=== PATIENT | female | born 1990 | race Caucasian/White ===

== ENCOUNTER 2019-09-24 05:44 | Inpatient (IN) | payer OTHER ==
[~2019-09-24] VITALS: Ht 157.5 cm; Wt 69.0 kg
[2019-09-24] MEDS ORDERED: SODIUM CHLORIDE 0.9% 1,000 ML IV ONE ×2 (06:21→07:35)
[2019-09-24 06:43] LABS: BG BASE EXCESS -21.6 mmol/L (-2.0-2.0); BG CARBOXYHEMOGLOBIN 0.6 % (0.5-1.5); BG DEOXYHEMOGLOBIN 2.6 % (0.0-5.0); BG FRACTION INSPIRED OXYGEN 21; BG HCO3 ACT 4.1 mmol/L (22.0-26.0); BG METHEMOGLOBIN 0.4 % (0.0-1.5); BG OXYGEN SATURATION 97.4 % (92.0-98.5); BG OXYHEMOGLOBIN 96.4 % (94.0-97.0); BG PCO2 11.6 mmHg (35.0-45.0); BG PH 7.167 (7.350-7.450); BG PO2 112.1 mmHg (75.0-100.0); BG SAMPLE SITE RIGHT RADIAL; BG TOTAL HEMOGLOBIN 15.9 g/dL (12.0-18.0); BG VENT MODE ROOM AIR
[2019-09-24 06:45] LABS: CHLORIDE 90 mEq/L (98-107)
[2019-09-24 06:51] LABS: HEMATOCRIT. 48.1 % (36.0-48.0); HEMOGLOBIN. 15.6 g/dL (12.0-16.0); MEAN CORPUSCULAR HEMOGLOBIN 35.1 pg (28.0-32.0); MEAN CORPUSCULAR VOLUME 108.3 fL (81.0-99.0); MEAN PLATELET VOLUME 10.5 fl (7.4-10.4); PLATELET 321 x1000/uL (130-400); RED BLOOD CELL COUNT 4.44 mill/uL (4.2-5.4)
[2019-09-24] MEDS ORDERED: INSULIN REGULAR (DRIP) 100 UNITS in SODIUM CHLORIDE 0.9% 99 ML IV SCH (07:15)
[2019-09-24 07:25] LABS: BETA HYDROXYBUTYRATE 10.8 mMol/L (0.0-0.3)
[2019-09-24] MEDS ORDERED: ONDANSETRON HCL 4MG/2ML INJ IV ONE (07:45)
[2019-09-24 09:00] LABS: PLATELET ESTIMATE NORMAL
[2019-09-24] MEDS ORDERED: INSULIN REGULAR (DRIP) 100 UNITS in SODIUM CHLORIDE 0.9% 99 ML IV ONE (09:45)
[2019-09-24] MEDS ORDERED: DIPHENHYDRAMINE 50MG/ML VIAL IV PRN (09:45)
[2019-09-24] MEDS ORDERED: ONDANSETRON HCL 4MG/2ML INJ IV PRN (09:45)
[2019-09-24] MEDS ORDERED: ACETAMINOPHEN 325MG TABLET PO PRN ×2 (09:45)
[2019-09-24] MEDS ORDERED: SODIUM CHLORIDE 0.9% 1,000 ML IV SCH (10:00)
[2019-09-24] MEDS ORDERED: DEXTROSE 50% WATER 50ML SYRINGE IV PRN ×2 (11:30)
[2019-09-24] MEDS: BLOOD SUGAR DIAGNOSTIC STRIP TEST SCH ×7 (11:49→18:55)
[2019-09-24] MEDS ORDERED: INSULIN REGULAR (DRIP) 100 UNITS in SODIUM CHLORIDE 0.9% 100 ML IV SCH (12:00)
[2019-09-24 12:33] LABS: CLARITY URINE CLEAR (CLEAR); COLOR URINE YELLOW (YELLOW); KETONES URINE 4+ (NEGATIVE); LEUKOCYTE ESTERASE URINE NEGATIVE (NEGATIVE); NITRITE URINE NEGATIVE (NEGATIVE); OCCULT BLOOD URINE 3+ (NEGATIVE); PROTEIN URINE 1+ (NEGATIVE); SPECIFIC GRAVITY URINE 1.033 (1.005-1.030); UROBILINOGEN URINE 0.2 E.U./dL (0.2-1.0)
[2019-09-24 12:37] LABS: *AMPHETAMINES SCREEN URINE NEGATIVE (NEGATIVE); *BARBITURATES SCREEN URINE NEGATIVE (NEGATIVE); *BENZODIAZEPINES SCREEN URINE NEGATIVE (NEGATIVE); *COCAINE SCREEN URINE NEGATIVE (NEGATIVE); METHADONE URINE SCREEN NEGATIVE (NEGATIVE); OPIATES URINE SCREEN NEGATIVE (NEGATIVE)
[2019-09-24 12:38] LABS: CANNABINOID URINE SCREEN PRESUMTIVE POSITIVE (NEGATIVE); PHENCYCLIDINE URINE SCREEN NEGATIVE (NEGATIVE)
[2019-09-24] MEDS ORDERED: LORAZEPAM 2MG/ML CPJ IV PRN (15:30)
[2019-09-24] MEDS ORDERED: DEXT 5%/0.45% NACL 1000ML 1,000 ML IV SCH (15:30)
[2019-09-24 17:58] LABS: CHLORIDE 114 mEq/L (98-107)
[2019-09-25 04:26] LABS: HEMATOCRIT. 39.3 % (36.0-48.0); HEMOGLOBIN. 13.6 g/dL (12.0-16.0); MEAN CORPUSCULAR HEMOGLOBIN 35.1 pg (28.0-32.0); MEAN CORPUSCULAR VOLUME 101.3 fL (81.0-99.0); MEAN PLATELET VOLUME 9.4 fl (7.4-10.4); PLATELET 221 x1000/uL (130-400); RED BLOOD CELL COUNT 3.88 mill/uL (4.2-5.4); RED CELL DISTRIBUTION WIDTH 13.4 % (11.6-14.6)
[2019-09-25 04:33] LABS: CHLORIDE 115 mEq/L (98-107)
[2019-09-25 07:48] LABS: PLATELET ESTIMATE NORMAL
[2019-09-25] MEDS ORDERED: POTASSIUM PHOS,M-BASIC-D-BASIC 30 MMOL in DEXT 5% WATER 500 ML IV NR (12:00)
[2019-09-25 18:23] LABS: CHLORIDE 106 mEq/L (98-107)
[2019-09-25] MEDS ORDERED: LORAZEPAM 1MG TABLET PO PRN (19:30)
[2019-09-25] MEDS ORDERED: ZOLPIDEM TARTRATE 5MG TABLET PO PRN (19:30)
[2019-09-25] MEDS ORDERED: DEXTROSE 50% WATER 50ML SYRINGE IV PRN (19:30)
[2019-09-25] MEDS ORDERED: POTASSIUM CHLORIDE 20MEQ TABLET SR PO NR (19:49)
[2019-09-25] MEDS: SODIUM CHLORIDE 0.9% 1,000 ML IV SCH (20:06)
[2019-09-25] MEDS ORDERED: INSULIN GLARGINE UD 100 UNITS/ML SYR SUBCUT NR (20:30)
[2019-09-25] MEDS: INSULIN LISPRO 100 UNITS/ML SUBCUT SCH (20:40)
[2019-09-25] MEDS ORDERED: FAMOTIDINE 10MG TABLET PO SCH (21:00)
[2019-09-25] MEDS: BLOOD SUGAR DIAGNOSTIC STRIP TEST SCH (22:23)
[2019-09-25] MEDS: FAMOTIDINE 20MG TABLET PO SCH (22:30)
[2019-09-26 04:32] LABS: BASOPHILS % 0.5 % (0.0-2.0); EOSINOPHILS % 1.1 % (0.0-5.0); HEMATOCRIT. 35.1 % (36.0-48.0); HEMOGLOBIN. 12.3 g/dL (12.0-16.0); LYMPHOCYTES % 15.4 % (20.0-50.0); MEAN CORPUSCULAR HEMOGLOBIN 35.1 pg (28.0-32.0); MEAN CORPUSCULAR VOLUME 100.4 fL (81.0-99.0); MEAN PLATELET VOLUME 9.4 fl (7.4-10.4); MONOCYTES % 7.2 % (2.0-8.0); NEUTROPHILS % 75.8 % (40.0-76.0); PLATELET 187 x1000/uL (130-400); RED BLOOD CELL COUNT 3.49 mill/uL (4.2-5.4); RED CELL DISTRIBUTION WIDTH 13.1 % (11.6-14.6)
[2019-09-26 04:38] LABS: CHLORIDE 108 mEq/L (98-107)
[2019-09-26 04:44] LABS: PHOSPHORUS 1.9 mg/dL (2.5-4.9)
[2019-09-26] MEDS: BLOOD SUGAR DIAGNOSTIC STRIP TEST SCH ×4 (06:30→20:42)
[2019-09-26 08:00] VITALS: BP 148/87
[2019-09-26] MEDS ORDERED: POTASSIUM CHLORIDE 20MEQ TABLET SR PO SCH (09:00)
[2019-09-26] MEDS ORDERED: INSULIN GLARGINE UD 100 UNITS/ML SYR SUBCUT SCH (10:00)
[2019-09-26] MEDS: INSULIN LISPRO 100 UNITS/ML SUBCUT SCH ×4 (10:42→21:16)
[2019-09-26] MEDS: FAMOTIDINE 20MG TABLET PO SCH ×2 (10:47→21:17)
[2019-09-26 11:27] VITALS: BP 148/87
[2019-09-26 12:00] VITALS: BP 139/99
[2019-09-26] MEDS: SODIUM CHLORIDE 0.9% 1,000 ML IV SCH (12:57)
[2019-09-26] MEDS ORDERED: MAGNESIUM 1 G PREMIX 100 ML IV SCH (13:00)
[2019-09-26] MEDS ORDERED: POTASSIUM PHOS,M-BASIC-D-BASIC 30 MMOL in DEXT 5% WATER 500 ML IV SCH (13:00)
[2019-09-26 16:00] VITALS: BP 141/95
[2019-09-26] MEDS ORDERED: CITRIC ACID/SODIUM CITRATE SOLN 15ML UDC PO SCH (17:00)
[2019-09-26 19:45] VITALS: BP 149/98
[2019-09-26 19:54] VITALS: BP 149/98
== END 2019-09-26 21:50 | disposition short-term general hospital (02) | DRG 637 ==
LOC: ER 05:44 → MICUSO 08:57 → EDBEDREQSVC 10:26 → 5WST 09-26 07:34
PROVIDERS: ADMIT Internal Medicine; ATTEND Internal Medicine
DX: E11.10 Type 2 diabetes mellitus with ketoacidosis without coma (principal); G93.41 Metabolic encephalopathy; N17.9 Acute kidney failure, unspecified; J98.11 Atelectasis; R65.10 Systemic inflammatory response syndrome (SIRS) of non-infectious origin without acute organ dysfunction; E83.39 Other disorders of phosphorus metabolism; I10 Essential (primary) hypertension; E86.0 Dehydration; F14.90 Cocaine use, unspecified, uncomplicated; F12.90 Cannabis use, unspecified, uncomplicated; Z79.899 Other long term (current) drug therapy
CPT/HCPCS: 36415; 36600; 71045; 80048; 80053; 80305; 81003; 82010; 82375; 82805; 82962; 83735; 84100; 84484; 85025; 93005; 96374; 99291; J1815; J2060; J2405; J3475; J3490; J7030; J7050; J7060

== ENCOUNTER 2021-01-22 15:19 | Inpatient (IN) | payer SELFPAY ==
[~2021-01-22] VITALS: Ht 157.5 cm; Wt 50.8 kg
[2021-01-22] MEDS ORDERED: SODIUM CHLORIDE 0.9% 1,000 ML IV ONE ×2 (15:45→16:45)
[2021-01-22 15:56] LABS: HEMATOCRIT. 42.8 % (36.0-48.0); HEMOGLOBIN. 13.3 g/dL (12.0-16.0); MEAN CORPUSCULAR HEMOGLOBIN 33.2 pg (28.0-32.0); MEAN CORPUSCULAR VOLUME 106.9 fL (81.0-99.0); MEAN PLATELET VOLUME 9.9 fl (7.4-10.4); PLATELET 330 x1000/uL (130-400); RED BLOOD CELL COUNT 4.01 mill/uL (4.2-5.4); RED CELL DISTRIBUTION WIDTH 13.9 % (11.6-14.6)
[2021-01-22 16:04] LABS: CHLORIDE 97 mEq/L (98-107)
[2021-01-22 16:07] LABS: HCG SCREEN NEGATIVE
[2021-01-22 16:27] LABS: PHOSPHORUS 8.2 mg/dL (2.5-4.9)
[2021-01-22 16:42] LABS: BG BASE EXCESS -25.7 mmol/L (-2.0-2.0); BG CARBOXYHEMOGLOBIN 0.3 % (0.5-1.5); BG DEOXYHEMOGLOBIN 1.6 % (0.0-5.0); BG FRACTION INSPIRED OXYGEN 32; BG HCO3 ACT 2.8 mmol/L (22.0-26.0); BG METHEMOGLOBIN 0.4 % (0.0-1.5); BG OXYGEN SATURATION 98.4 % (92.0-98.5); BG OXYHEMOGLOBIN 97.7 % (94.0-97.0); BG PCO2 10.6 mmHg (35.0-45.0); BG PH 7.041 (7.350-7.450); BG PO2 151.5 mmHg (75.0-100.0); BG SAMPLE SITE RIGHT BRACHIAL; BG TOTAL HEMOGLOBIN 12.7 g/dL (12.0-18.0); BG VENT MODE NASAL CANNULA
[2021-01-22] MEDS ORDERED: KCL 10MEQ/50ML PREMIX 50 ML IV ONE (16:45)
[2021-01-22] MEDS ORDERED: INSULIN REGULAR (DRIP) 100 UNITS in SODIUM CHLORIDE 0.9% 100 ML IV ONE (16:45)
[2021-01-22 16:47] LABS: BETA HYDROXYBUTYRATE 11.6 mMol/L (0.0-0.3)
[2021-01-22] MEDS ORDERED: MORPHINE SULFATE 4 MG/ML CPJ (NOT FOR IM USE) IV ONE (17:00)
[2021-01-22 17:34] LABS: PLATELET ESTIMATE NORMAL
[2021-01-22 18:18] LABS: PHOSPHORUS 4.2 mg/dL (2.5-4.9)
[2021-01-22 21:56] LABS: BG BASE EXCESS -22.4 mmol/L (-2.0-2.0); BG CARBOXYHEMOGLOBIN 0.4 % (0.5-1.5); BG DEOXYHEMOGLOBIN 1.5 % (0.0-5.0); BG FRACTION INSPIRED OXYGEN 28; BG HCO3 ACT 3.5 mmol/L (22.0-26.0); BG METHEMOGLOBIN 0.2 % (0.0-1.5); BG OXYGEN SATURATION 98.5 % (92.0-98.5); BG OXYHEMOGLOBIN 97.9 % (94.0-97.0); BG PCO2 9.8 mmHg (35.0-45.0); BG PH 7.168 (7.350-7.450); BG PO2 136.3 mmHg (75.0-100.0); BG SAMPLE SITE LEFT RADIAL; BG TOTAL HEMOGLOBIN 13.1 g/dL (12.0-18.0); BG VENT MODE NASAL CANNULA
[2021-01-22 22:09] LABS: CHLORIDE 106 mEq/L (98-107)
[2021-01-22 23:11] LABS: PHOSPHORUS 1.8 mg/dL (2.5-4.9)
[2021-01-22] MEDS ORDERED: ACETAMINOPHEN 650MG/20.3ML UDC GT PRN (23:30)
[2021-01-22] MEDS ORDERED: INSULIN REGULAR (DRIP) 100 UNITS in SODIUM CHLORIDE 0.9% 100 ML IV SCH (23:30)
[2021-01-22] MEDS ORDERED: ONDANSETRON HCL 4MG/2ML INJ IV PRN (23:30)
[2021-01-22] MEDS ORDERED: HYDROCODONE/ACETAMINOPHEN 5/325MG TABLET PO PRN (23:30)
[2021-01-22] MEDS ORDERED: DEXTROSE 50% WATER 50ML SYRINGE IV PRN ×2 (23:30)
[2021-01-22] MEDS ORDERED: SODIUM CHLORIDE 0.45% 1,000 ML IV SCH ×2 (23:30)
[2021-01-22] MEDS ORDERED: HYDROCODONE/APAP 7.5/325MG 1 TAB TABLET PO PRN (23:30)
[2021-01-22] MEDS ORDERED: POTASSIUM PHOS,M-BASIC-D-BASIC 10 MMOL in DEXT 5% WATER 246.6667 ML IV ONE (23:30)
[2021-01-22] MEDS ORDERED: CEFTRIAXONE 1 G PREMIX 50 ML IV SCH (23:45)
[2021-01-22] MEDS ORDERED: SODIUM BICARBONATE 8.4% 1 MEQ/ML 50ML SYR IV NR (23:45)
[2021-01-22] MEDS ORDERED: DEXT 5%/0.9% NACL 1,000 ML IV SCH (23:45)
[2021-01-22] MEDS ORDERED: SODIUM BICARBONATE 150 MEQ in SODIUM CHLORIDE 0.45% 1,000 ML IV SCH (23:45)
[2021-01-22] MEDS: MORPHINE SULFATE 2 MG/ML CPJ (NOT FOR IM USE) IV PRN (23:51)
[2021-01-23] MEDS ORDERED: MAGNESIUM 2 G PREMIX 50 ML IV ONE
[2021-01-23] MEDS ORDERED: SODIUM BICARBONATE 150 MEQ in DEXTROSE 5% WATER 1,000 ML IV SCH
[2021-01-23] MEDS ORDERED: SODIUM PHOS,M-BASIC-D-BASIC 10 MM in DEXTROSE 5% WATER 250 ML IV ONE (01:00)
[2021-01-23 04:50] LABS: BASOPHILS % 0.3 % (0.0-2.0); HEMATOCRIT. 35.4 % (36.0-48.0); HEMOGLOBIN. 12.2 g/dL (12.0-16.0); MEAN CORPUSCULAR HEMOGLOBIN 34.1 pg (28.0-32.0); MEAN CORPUSCULAR VOLUME 99.1 fL (81.0-99.0); MEAN PLATELET VOLUME 9.3 fl (7.4-10.4); MONOCYTES % 6.6 % (2.0-8.0); NEUTROPHILS % 83.1 % (40.0-76.0); PLATELET 231 x1000/uL (130-400); RED BLOOD CELL COUNT 3.58 mill/uL (4.2-5.4); RED CELL DISTRIBUTION WIDTH 13.4 % (11.6-14.6)
[2021-01-23 04:56] LABS: CHLORIDE 104 mEq/L (98-107)
[2021-01-23 05:04] LABS: LDL CHOLESTEROL 123 mg/dL (5-100)
[2021-01-23 05:06] LABS: CREATINE KINASE 83 IU/L (26-192); HDL CHOLESTEROL 37 mg/dL (40-59)
[2021-01-23 05:11] LABS: CREATINE KINASE MB FRACTION 2.1 ng/mL (0.5-3.6)
[2021-01-23 06:58] LABS: CLARITY URINE CLEAR (CLEAR); COLOR URINE YELLOW (YELLOW); KETONES URINE 4+ (NEGATIVE); LEUKOCYTE ESTERASE URINE NEGATIVE (NEGATIVE); NITRITE URINE NEGATIVE (NEGATIVE); OCCULT BLOOD URINE 3+ (NEGATIVE); PROTEIN URINE 2+ (NEGATIVE); SPECIFIC GRAVITY URINE 1.016 (1.005-1.030)
[2021-01-23] MEDS: BLOOD SUGAR DIAGNOSTIC STRIP TEST SCH ×7 (09:30→21:18)
[2021-01-23] MEDS: ENOXAPARIN 40MG/0.4ML SYR SUBCUT SCH (09:35)
[2021-01-23] MEDS: MORPHINE SULFATE 2 MG/ML CPJ (NOT FOR IM USE) IV PRN (09:50)
[2021-01-23] MEDS ORDERED: SODIUM BICARBONATE 8.4% 1 MEQ/ML 50ML SYR IV ONE (11:00)
[2021-01-23] MEDS ORDERED: POTASSIUM CHLORIDE 20MEQ TABLET SR PO ONE (11:00)
[2021-01-23] MEDS: DEXT 5%/0.9% NACL 1,000 ML IV SCH (13:00)
[2021-01-23] MEDS ORDERED: NALOXONE HCL 0.4MG/ML VIAL IV PRN (15:45)
[2021-01-23 16:06] LABS: CHLORIDE 102 mEq/L (98-107)
[2021-01-23 16:14] LABS: CREATINE KINASE 125 IU/L (26-192)
[2021-01-23 16:15] LABS: CREATINE KINASE MB FRACTION < 1.0 ng/mL (0.5-3.6)
[2021-01-23] MEDS ORDERED: DEXTROSE 50% WATER 50ML SYRINGE IV PRN (17:15)
[2021-01-23] MEDS ORDERED: INSULIN GLARGINE UD 100 UNITS/ML SYR SUBCUT NR (17:30)
[2021-01-23] MEDS ORDERED: CEFTRIAXONE 1,000 MG in DEXTROSE 5% WATER 50 ML IV SCH (20:30)
[2021-01-23 22:00] VITALS: BP 108/76
[2021-01-23] MEDS: INSULIN LISPRO 100 UNITS/ML SUBCUT SCH (22:28)
[2021-01-24] VITALS: BP 108/76
[2021-01-24] MEDS ORDERED: LANTUSUD SUBCUT ×2 (01:03→15:21)
[2021-01-24 04:00] VITALS: BP 105/76
[2021-01-24] MEDS: DEXT 5%/0.9% NACL 1,000 ML IV SCH (04:02)
[2021-01-24] MEDS: BLOOD SUGAR DIAGNOSTIC STRIP TEST SCH ×3 (06:40→16:38)
[2021-01-24] MEDS: INSULIN LISPRO 100 UNITS/ML SUBCUT SCH ×3 (07:10→16:39)
[2021-01-24 08:00] VITALS: BP 104/64
[2021-01-24] MEDS ORDERED: INSULIN GLARGINE UD 100 UNITS/ML SYR SUBCUT SCH (10:00)
[2021-01-24] MEDS: ENOXAPARIN 40MG/0.4ML SYR SUBCUT SCH (10:20)
[2021-01-24 12:00] VITALS: BP 104/68
[2021-01-24 12:40] LABS: BASOPHILS % 0.6 % (0.0-2.0); EOSINOPHILS % 1.4 % (0.0-5.0); HEMOGLOBIN. 11.3 g/dL (12.0-16.0); LYMPHOCYTES % 32.9 % (20.0-50.0); MEAN CORPUSCULAR HEMOGLOBIN 33.5 pg (28.0-32.0); MEAN CORPUSCULAR VOLUME 97.9 fL (81.0-99.0); MEAN PLATELET VOLUME 9.5 fl (7.4-10.4); MONOCYTES % 8.4 % (2.0-8.0); NEUTROPHILS % 56.7 % (40.0-76.0); PLATELET 196 x1000/uL (130-400); RED BLOOD CELL COUNT 3.37 mill/uL (4.2-5.4)
[2021-01-24 12:51] LABS: CHLORIDE 99 mEq/L (98-107)
[2021-01-24] MEDS ORDERED: POTASSIUM CHLORIDE 20MEQ TABLET SR PO NR ×2 (14:30→15:30)
[2021-01-24] MEDS ORDERED: INSLIS SUBCUT (15:22)
[2021-01-24 16:00] VITALS: BP 106/64
[2021-01-24] MEDS ORDERED: INSULIN GLARGINE UD 100 UNITS/ML SYR SUBCUT NR (16:30)
[2021-01-24 17:17] LABS: *AMPHETAMINES SCREEN URINE NEGATIVE (NEGATIVE)
[2021-01-24 17:18] LABS: *BARBITURATES SCREEN URINE NEGATIVE (NEGATIVE); *BENZODIAZEPINES SCREEN URINE NEGATIVE (NEGATIVE); *COCAINE SCREEN URINE NEGATIVE (NEGATIVE); METHADONE URINE SCREEN NEGATIVE (NEGATIVE); OPIATES URINE SCREEN NEGATIVE (NEGATIVE); PHENCYCLIDINE URINE SCREEN NEGATIVE (NEGATIVE)
[2021-01-24 17:19] LABS: CANNABINOID URINE SCREEN NEGATIVE (NEGATIVE)
[2021-01-24 18:24] VITALS: BP 104/68
[2021-01-25] MEDS ORDERED: INSULIN GLARGINE UD 100 UNITS/ML SYR SUBCUT SCH (10:00)
== END 2021-01-24 21:06 | disposition home or self-care (01) | DRG 420 ==
LOC: ER 15:19 → MICUSO 20:23 → 7EST 01-23 19:03
PROVIDERS: ADMIT Family Medicine; ATTEND Family Medicine
DX: E10.10 Type 1 diabetes mellitus with ketoacidosis without coma (principal); F12.10 Cannabis abuse, uncomplicated; F17.200 Nicotine dependence, unspecified, uncomplicated; F14.10 Cocaine abuse, uncomplicated; Z20.822 Contact with and (suspected) exposure to COVID-19; F15.10 Other stimulant abuse, uncomplicated; R79.89 Other specified abnormal findings of blood chemistry; R00.0 Tachycardia, unspecified; Z79.4 Long term (current) use of insulin
CPT/HCPCS: 36415; 36600; 71045; 80048; 80053; 80061; 80305; 81003; 82010; 82375; 82550; 82553; 82805; 82962; 83036; 83605; 83735; 83880; 83930; 84100; 84132; 84145; 84484; 84703; 85025; 85379; 87426; 87804; 93005; 93970; 99291; J0696; J1650; J1815; J2270; J2405; J3475; J3480; J3490; J7030; J7042; J7050; J7060; J7070

== ENCOUNTER 2021-02-09 13:29 | Inpatient (IN) | payer SELFPAY ==
[~2021-02-09] VITALS: Ht 157.5 cm; Wt 51.3 kg
[~2021-02-09 13:29] MED LIST: INSLIS SUBCUT; LANTUSUD SUBCUT
[2021-02-09] MEDS ORDERED: SODIUM CHLORIDE 0.9% 1,000 ML IV ONE (14:00)
[2021-02-09 14:44] LABS: CLARITY URINE CLEAR (CLEAR); COLOR URINE YELLOW (YELLOW); KETONES URINE 3+ (NEGATIVE); LEUKOCYTE ESTERASE URINE NEGATIVE (NEGATIVE); NITRITE URINE NEGATIVE (NEGATIVE); OCCULT BLOOD URINE 1+ (NEGATIVE); PH URINE 5.5 (4.5-8.0); PROTEIN URINE 3+ (NEGATIVE); SPECIFIC GRAVITY URINE 1.035 (1.005-1.030)
[2021-02-09 14:48] LABS: BASOPHILS % 0.4 % (0.0-2.0); HEMATOCRIT. 45.9 % (36.0-48.0); HEMOGLOBIN. 14.3 g/dL (12.0-16.0); LYMPHOCYTES % 14.2 % (20.0-50.0); MEAN CORPUSCULAR HEMOGLOBIN 33.2 pg (28.0-32.0); MEAN CORPUSCULAR VOLUME 106.5 fL (81.0-99.0); MEAN PLATELET VOLUME 9.2 fl (7.4-10.4); MONOCYTES % 5.1 % (2.0-8.0); NEUTROPHILS % 80.3 % (40.0-76.0); PLATELET 324 x1000/uL (130-400); RED BLOOD CELL COUNT 4.31 mill/uL (4.2-5.4)
[2021-02-09 14:49] LABS: CHLORIDE 99 mEq/L (98-107)
[2021-02-09 14:57] LABS: BETA HYDROXYBUTYRATE 9.6 mMol/L (0.0-0.3)
[2021-02-09] MEDS ORDERED: SODIUM CHLORIDE 0.9% 1,000 ML IV STA (15:12)
[2021-02-09] MEDS ORDERED: INSULIN REGULAR (DRIP) 100 UNITS in SODIUM CHLORIDE 0.9% 100 ML IV SCH ×2 (15:15→18:00)
[2021-02-09] MEDS ORDERED: MAGNESIUM/ALUMINUM HYDROXIDE/SIMETHICONE 30ML UDC PO PRN (17:15)
[2021-02-09] MEDS ORDERED: IPRATROPIUM/ALBUTEROL 0.5-3(2.5)MG/3ML NEB HHN PRN (17:15)
[2021-02-09] MEDS ORDERED: DOCUSATE SODIUM 100MG CAPSULE PO PRN (17:15)
[2021-02-09] MEDS ORDERED: MORPHINE SULFATE 2 MG/ML CPJ (NOT FOR IM USE) IV PRN (17:15)
[2021-02-09] MEDS ORDERED: DEXTROSE 50% WATER 50ML SYRINGE IV PRN ×3 (17:15→22:30)
[2021-02-09] MEDS ORDERED: HYDRALAZINE 20MG/ML VIAL IV PRN (17:15)
[2021-02-09] MEDS ORDERED: HYDROCODONE/ACETAMINOPHEN 5/325MG TABLET PO PRN (17:15)
[2021-02-09] MEDS ORDERED: ACETAMINOPHEN 325MG TABLET PO PRN (17:15)
[2021-02-09] MEDS ORDERED: CLONIDINE 0.1MG TABLET PO PRN (17:15)
[2021-02-09] MEDS ORDERED: LORAZEPAM 2MG/ML CPJ IV PRN (17:15)
[2021-02-09] MEDS ORDERED: DIPHENHYDRAMINE 50MG/ML VIAL IV PRN (17:15)
[2021-02-09] MEDS ORDERED: ONDANSETRON HCL 4MG/2ML INJ IV PRN (17:15)
[2021-02-09] MEDS ORDERED: GUAIFENESIN 200MG/10ML SUGAR FREE UDC PO PRN (17:15)
[2021-02-09 17:28] LABS: CHLORIDE 110 mEq/L (98-107)
[2021-02-09] MEDS ORDERED: ENOXAPARIN 40MG/0.4ML SYR SUBCUT SCH (17:30)
[2021-02-09 17:33] LABS: PHOSPHORUS 1.7 mg/dL (2.5-4.9)
[2021-02-09] MEDS: BLOOD SUGAR DIAGNOSTIC STRIP TEST SCH ×4 (17:47→20:15)
[2021-02-09] MEDS ORDERED: SODIUM BICARBONATE 8.4% 1 MEQ/ML 50ML SYR IV NR ×2 (18:30→22:35)
[2021-02-09 20:26] LABS: CHLORIDE 107 mEq/L (98-107)
[2021-02-09 20:35] LABS: PHOSPHORUS 0.9 mg/dL (2.5-4.9)
[2021-02-09] MEDS ORDERED: DEXT 5%/0.45% NACL 1000ML 1,000 ML IV SCH (22:00)
[2021-02-09] MEDS ORDERED: MAGNESIUM 2 G PREMIX 50 ML IV NR (22:00)
[2021-02-09] MEDS: SODIUM CHLORIDE 0.9% INJ 3ML FLUSH IVF SCH (22:00)
[2021-02-09 22:07] LABS: CHLORIDE 108 mEq/L (98-107)
[2021-02-09 22:17] LABS: PHOSPHORUS 0.8 mg/dL (2.5-4.9)
[2021-02-09] MEDS ORDERED: SODIUM PHOS,M-BASIC-D-BASIC 20 MM in DEXT 5% WATER 243.3333 ML IV NR (22:30)
[2021-02-09] MEDS ORDERED: INSULIN GLARGINE UD 100 UNITS/ML SYR SUBCUT NR (22:30)
[2021-02-09] MEDS ORDERED: POTASSIUM PHOS,M-BASIC-D-BASIC 20 MMOL in DEXT 5% WATER 243.3333 ML IV NR (22:30)
[2021-02-09] MEDS: SODIUM CHLORIDE 0.45% 1,000 ML IV SCH (23:44)
[2021-02-10] MEDS: SODIUM CHLORIDE 0.45% 1,000 ML IV SCH ×2 (05:28→12:24)
[2021-02-10 05:34] LABS: CHLORIDE 104 mEq/L (98-107)
[2021-02-10 05:35] LABS: BASOPHILS % 1.1 % (0.0-2.0); EOSINOPHILS % 2.2 % (0.0-5.0); HEMOGLOBIN. 11.5 g/dL (12.0-16.0); LYMPHOCYTES % 43.3 % (20.0-50.0); MEAN CORPUSCULAR HEMOGLOBIN 33.7 pg (28.0-32.0); MEAN CORPUSCULAR VOLUME 99.5 fL (81.0-99.0); MEAN PLATELET VOLUME 8.2 fl (7.4-10.4); MONOCYTES % 8.5 % (2.0-8.0); NEUTROPHILS % 44.9 % (40.0-76.0); PLATELET 196 x1000/uL (130-400); RED BLOOD CELL COUNT 3.41 mill/uL (4.2-5.4); RED CELL DISTRIBUTION WIDTH 13.1 % (11.6-14.6)
[2021-02-10] MEDS: SODIUM CHLORIDE 0.9% INJ 3ML FLUSH IVF SCH ×2 (06:18→14:00)
[2021-02-10] MEDS: BLOOD SUGAR DIAGNOSTIC STRIP TEST SCH ×3 (06:18→12:22)
[2021-02-10] MEDS: INSULIN LISPRO 100 UNITS/ML SUBCUT SCH ×2 (08:20→12:20)
[2021-02-10 09:11] VITALS: BP 117/66
[2021-02-10] MEDS ORDERED: POTASSIUM CHLORIDE 20MEQ TABLET SR PO NR (09:15)
[2021-02-10 09:26] VITALS: BP 117/66
[2021-02-10] MEDS ORDERED: INSULIN GLARGINE UD 100 UNITS/ML SYR SUBCUT SCH (10:00)
[2021-02-10 10:03] VITALS: BP 121/85
[2021-02-10 11:11] VITALS: BP 118/72
[2021-02-10 12:27] VITALS: BP 106/56
[2021-02-10 13:24] VITALS: BP_SYST 106; BP_SYST 125; BP_DIAS 56; BP_DIAS 95
== END 2021-02-10 14:17 | disposition home or self-care (01) | DRG 420 ==
LOC: ER 13:29 → 3WST 16:39 → EDBEDREQTM 23:03 → EDBEDREQSVC 23:03 → ENRESERV 02-10 07:28
PROVIDERS: ADMIT Internal Medicine; ATTEND Internal Medicine
DX: E10.10 Type 1 diabetes mellitus with ketoacidosis without coma (principal); E87.1 Hypo-osmolality and hyponatremia; E86.0 Dehydration; E87.5 Hyperkalemia; Z79.4 Long term (current) use of insulin
CPT/HCPCS: 36415; 71045; 80048; 80053; 81003; 82010; 82962; 83605; 83735; 83880; 84100; 84484; 85025; 85379; 93005; 99291; J1650; J1815; J3475; J3490; J7030; J7050; J7060

== ENCOUNTER 2021-03-27 20:34 | Inpatient (IN) | payer OTHER ==
[~2021-03-27] VITALS: Ht 165.1 cm; Wt 52.6 kg
[2021-03-27] MEDS ORDERED: SODIUM CHLORIDE 0.9% 1,000 ML IV ONE (20:45)
[2021-03-27 21:07] LABS: BASOPHILS % 0.4 % (0.0-2.0); HEMATOCRIT. 49.1 % (36.0-48.0); HEMOGLOBIN. 15.1 g/dL (12.0-16.0); LYMPHOCYTES % 7.1 % (20.0-50.0); MEAN CORPUSCULAR HEMOGLOBIN 33.4 pg (28.0-32.0); MEAN CORPUSCULAR VOLUME 108.6 fL (81.0-99.0); MEAN PLATELET VOLUME 10.4 fl (7.4-10.4); MONOCYTES % 2.9 % (2.0-8.0); NEUTROPHILS % 89.6 % (40.0-76.0); PLATELET 250 x1000/uL (130-400); RED BLOOD CELL COUNT 4.52 mill/uL (4.2-5.4); RED CELL DISTRIBUTION WIDTH 13.2 % (11.6-14.6)
[2021-03-27 21:11] LABS: CHLORIDE 100 mEq/L (98-107)
[2021-03-27 21:15] LABS: ETHANOL BLOOD 25 mg/dL
[2021-03-27 21:20] LABS: CREATINE KINASE 75 IU/L (26-192)
[2021-03-27] MEDS ORDERED: INSULIN REGULAR (DRIP) 100 UNITS in SODIUM CHLORIDE 0.9% 100 ML IV ONE (21:45)
[2021-03-27] MEDS ORDERED: SODIUM CHLORIDE 0.9% 1000ML BAG (SEPSIS BOLUS) IV ONE (21:45)
[2021-03-27] MEDS ORDERED: POTASSIUM CHLORIDE INJ 30 MEQ in DEXT 5%/0.9% NACL 1,000 ML IV ONE (21:45)
[2021-03-27] MEDS ORDERED: MAGNESIUM 2 G PREMIX 50 ML IV ONE (21:45)
[2021-03-27 21:47] LABS: INR 1.2
[2021-03-27 22:24] LABS: CLARITY URINE CLEAR (CLEAR); COLOR URINE YELLOW (YELLOW); KETONES URINE 3+ (NEGATIVE); LEUKOCYTE ESTERASE URINE NEGATIVE (NEGATIVE); NITRITE URINE NEGATIVE (NEGATIVE); OCCULT BLOOD URINE 1+ (NEGATIVE); PROTEIN URINE 3+ (NEGATIVE); SPECIFIC GRAVITY URINE 1.049 (1.005-1.030)
[2021-03-27 22:33] LABS: *AMPHETAMINES SCREEN URINE NEGATIVE (NEGATIVE); CANNABINOID URINE SCREEN NEGATIVE (NEGATIVE); METHADONE URINE SCREEN NEGATIVE (NEGATIVE); OPIATES URINE SCREEN NEGATIVE (NEGATIVE); PHENCYCLIDINE URINE SCREEN NEGATIVE (NEGATIVE)
[2021-03-27 22:34] LABS: *BARBITURATES SCREEN URINE NEGATIVE (NEGATIVE); *BENZODIAZEPINES SCREEN URINE NEGATIVE (NEGATIVE); *COCAINE SCREEN URINE NEGATIVE (NEGATIVE)
[2021-03-27] MEDS ORDERED: PIPERACILLIN/TAZOBACTAM 3.375GM/50ML PREMIX IV SCH (23:00)
[2021-03-27 23:06] LABS: CHLORIDE 107 mEq/L (98-107)
[2021-03-27 23:12] LABS: PHOSPHORUS 6.5 mg/dL (2.5-4.9)
[2021-03-27] MEDS ORDERED: CLONIDINE 0.1MG TABLET PO PRN (23:30)
[2021-03-27] MEDS ORDERED: MAGNESIUM/ALUMINUM HYDROXIDE/SIMETHICONE 30ML UDC PO PRN (23:30)
[2021-03-27] MEDS ORDERED: ACETAMINOPHEN 325MG TABLET PO PRN (23:30)
[2021-03-28 00:21] LABS: CHLORIDE 111 mEq/L (98-107)
[2021-03-28] MEDS: GUAIFENESIN 200MG/10ML SUGAR FREE UDC PO PRN ×3 (01:55→15:30)
[2021-03-28 01:58] LABS: BG CARBOXYHEMOGLOBIN 0.3 % (0.5-1.5); BG DEOXYHEMOGLOBIN 12.9 % (0.0-5.0); BG FRACTION INSPIRED OXYGEN 21; BG HCO3 ACT 4.3 mmol/L (22.0-26.0); BG METHEMOGLOBIN 0.3 % (0.0-1.5); BG OXYHEMOGLOBIN 86.5 % (94.0-97.0); BG PH 6.833 (7.350-7.450); BG PO2 66.3 mmHg (75.0-100.0); BG TOTAL HEMOGLOBIN 13.1 g/dL (12.0-18.0); BG VENT MODE ROOM AIR
[2021-03-28 02:26] LABS: CHLORIDE 115 mEq/L (98-107)
[2021-03-28] MEDS ORDERED: DEXT 5%/0.45% NACL KCL 20MEQ/L 1,000 ML IV SCH (04:00)
[2021-03-28 04:13] LABS: HEMATOCRIT. 41.4 % (36.0-48.0); HEMOGLOBIN. 13.4 g/dL (12.0-16.0); MEAN CORPUSCULAR HEMOGLOBIN 33.7 pg (28.0-32.0); MEAN CORPUSCULAR VOLUME 104.5 fL (81.0-99.0); MEAN PLATELET VOLUME 10.4 fl (7.4-10.4); PLATELET 154 x1000/uL (130-400); RED BLOOD CELL COUNT 3.96 mill/uL (4.2-5.4); RED CELL DISTRIBUTION WIDTH 12.7 % (11.6-14.6)
[2021-03-28 04:21] LABS: CHLORIDE 120 mEq/L (98-107)
[2021-03-28 04:27] LABS: PHOSPHORUS 2.2 mg/dL (2.5-4.9)
[2021-03-28] MEDS: DEXT 5%/0.45% NACL 1000ML 1,000 ML IV SCH ×3 (07:30→15:45)
[2021-03-28] MEDS ORDERED: IOHEXOL-350 100 ML BOTTLE ONE (08:03)
[2021-03-28] MEDS: ONDANSETRON HCL 4MG/2ML INJ IV PRN ×3 (08:56→18:27)
[2021-03-28] MEDS: ENOXAPARIN 40MG/0.4ML SYR SUBCUT SCH ×2 (09:00→10:33)
[2021-03-28] MEDS ORDERED: DEXT 5%/0.9% NACL 1,000 ML IV SCH (10:00)
[2021-03-28] MEDS ORDERED: INSULIN GLARGINE UD 100 UNITS/ML SYR SUBCUT SCH (10:00)
[2021-03-28] MEDS ORDERED: DEXTROSE 50% WATER 50ML SYRINGE IV PRN ×2 (10:00)
[2021-03-28] MEDS ORDERED: INSULIN REGULAR (DRIP) 100 UNITS in SODIUM CHLORIDE 0.9% 100 ML IV SCH (10:00)
[2021-03-28 10:17] LABS: CHLORIDE 116 mEq/L (98-107)
[2021-03-28] MEDS: BLOOD SUGAR DIAGNOSTIC STRIP TEST SCH ×16 (10:35→23:00)
[2021-03-28] MEDS: ACETAMINOPHEN 325MG TABLET PO PRN ×2 (11:25→18:27)
[2021-03-28 12:20] LABS: PLATELET ESTIMATE NORMAL
[2021-03-28] MEDS ORDERED: METOCLOPRAMIDE HCL 10MG TABLET PO PRN (15:30)
[2021-03-28] MEDS ORDERED: INSULIN GLARGINE UD 100 UNITS/ML SYR SUBCUT NR (16:00)
[2021-03-28] MEDS: INSULIN LISPRO 100 UNITS/ML SUBCUT SCH ×2 (18:43→20:26)
[2021-03-28 20:42] LABS: CHLORIDE 112 mEq/L (98-107)
[2021-03-29] MEDS: BLOOD SUGAR DIAGNOSTIC STRIP TEST SCH ×12 (01:00→21:18)
[2021-03-29] MEDS: ACETAMINOPHEN 325MG TABLET PO PRN (03:40)
[2021-03-29 04:35] LABS: HEMATOCRIT. 40.5 % (36.0-48.0); HEMOGLOBIN. 13.6 g/dL (12.0-16.0); MEAN CORPUSCULAR VOLUME 97.9 fL (81.0-99.0); MEAN PLATELET VOLUME 9.8 fl (7.4-10.4); PLATELET 121 x1000/uL (130-400); RED BLOOD CELL COUNT 4.14 mill/uL (4.2-5.4); RED CELL DISTRIBUTION WIDTH 12.3 % (11.6-14.6)
[2021-03-29 04:42] LABS: CHLORIDE 115 mEq/L (98-107)
[2021-03-29 04:53] LABS: PHOSPHORUS 0.5 mg/dL (2.5-4.9)
[2021-03-29 05:17] LABS: PLATELET ESTIMATE SLIGHTLY DECREASED
[2021-03-29] MEDS ORDERED: GUAIFENESIN 200MG/10ML SUGAR FREE UDC PO PRN (05:30)
[2021-03-29] MEDS ORDERED: POTASSIUM PHOS,M-BASIC-D-BASIC 30 MMOL in DEXT 5% WATER 500 ML IV SCH (06:30)
[2021-03-29] MEDS: INSULIN LISPRO 100 UNITS/ML SUBCUT SCH ×4 (08:20→21:40)
[2021-03-29] MEDS ORDERED: POTASSIUM CHLORIDE 20MEQ TABLET SR PO NR (09:00)
[2021-03-29 09:42] LABS: T4 FREE 0.87 ng/dL (0.76-1.46)
[2021-03-29 09:49] LABS: PHOSPHORUS 2.2 mg/dL (2.5-4.9)
[2021-03-29] MEDS ORDERED: INSULIN GLARGINE UD 100 UNITS/ML SYR SUBCUT SCH (10:00)
[2021-03-29 11:00] VITALS: BP 117/77
[2021-03-29] MEDS ORDERED: MAGNESIUM 4 G PREMIX 100 ML IV NR (11:00)
[2021-03-29] MEDS: DEXT 5%/0.45% NACL 1000ML 1,000 ML IV SCH ×3 (11:33→21:17)
[2021-03-29] MEDS: ENOXAPARIN 40MG/0.4ML SYR SUBCUT SCH (11:59)
[2021-03-29 12:00] VITALS: BP 117/77
[2021-03-29 16:00] VITALS: BP 119/80
[2021-03-29 16:46] LABS: CREATINE KINASE 106 IU/L (26-192)
[2021-03-29 16:47] LABS: CREATINE KINASE MB FRACTION 1.7 ng/mL (0.5-3.6)
[2021-03-29 20:00] VITALS: BP 122/93
[2021-03-30] VITALS: BP 119/75
[2021-03-30 00:27] LABS: CREATINE KINASE 87 IU/L (26-192)
[2021-03-30 00:28] LABS: CREATINE KINASE MB FRACTION < 1.0 ng/mL (0.5-3.6)
[2021-03-30] MEDS: DEXT 5%/0.45% NACL 1000ML 1,000 ML IV SCH ×4 (02:45→17:39)
[2021-03-30 04:00] VITALS: BP 113/60
[2021-03-30] MEDS: BLOOD SUGAR DIAGNOSTIC STRIP TEST SCH ×4 (06:43→21:00)
[2021-03-30 06:59] LABS: CHLORIDE 117 mEq/L (98-107)
[2021-03-30 07:15] LABS: EOSINOPHILS % 0.5 % (0.0-5.0); HEMATOCRIT. 37.2 % (36.0-48.0); HEMOGLOBIN. 13.1 g/dL (12.0-16.0); LYMPHOCYTES % 13.9 % (20.0-50.0); MEAN CORPUSCULAR HEMOGLOBIN 33.7 pg (28.0-32.0); MEAN CORPUSCULAR VOLUME 95.8 fL (81.0-99.0); MEAN PLATELET VOLUME 10.3 fl (7.4-10.4); MONOCYTES % 4.2 % (2.0-8.0); NEUTROPHILS % 81.4 % (40.0-76.0); PLATELET 145 x1000/uL (130-400); RED BLOOD CELL COUNT 3.88 mill/uL (4.2-5.4); RED CELL DISTRIBUTION WIDTH 12.4 % (11.6-14.6)
[2021-03-30 07:19] LABS: PHOSPHORUS 1.6 mg/dL (2.5-4.9)
[2021-03-30] MEDS: INSULIN LISPRO 100 UNITS/ML SUBCUT SCH ×7 (07:20→21:00)
[2021-03-30 07:21] LABS: CREATINE KINASE 55 IU/L (26-192)
[2021-03-30 07:27] LABS: CREATINE KINASE MB FRACTION < 1.0 ng/mL (0.5-3.6)
[2021-03-30 08:00] VITALS: BP 115/82
[2021-03-30] MEDS: ENOXAPARIN 40MG/0.4ML SYR SUBCUT SCH (08:51)
[2021-03-30] MEDS ORDERED: POTASSIUM CHLORIDE INJ 40 MEQ in DEXT 5% WATER 250 ML IV ONE (09:00)
[2021-03-30] MEDS ORDERED: POTASSIUM-SODIUM PHOSPHATE POWDER PACKET PO NR (09:15)
[2021-03-30] MEDS ORDERED: INSULIN GLARGINE UD 100 UNITS/ML SYR SUBCUT SCH (10:00)
[2021-03-30] MEDS: KCL 20MEQ/100ML PREMIX 100 ML IV SCH ×2 (11:39→13:51)
[2021-03-30 11:40] VITALS: BP 107/76
[2021-03-30 16:00] VITALS: BP 118/85
[2021-03-30 19:04] LABS: PHOSPHORUS 1.3 mg/dL (2.5-4.9)
[2021-03-30 20:00] VITALS: BP 108/78
[2021-03-31] VITALS: BP 113/78
[2021-03-31 04:00] VITALS: BP 114/84
[2021-03-31] MEDS: BLOOD SUGAR DIAGNOSTIC STRIP TEST SCH ×4 (05:10→20:28)
[2021-03-31 05:46] LABS: PHOSPHORUS 1.9 mg/dL (2.5-4.9)
[2021-03-31 05:52] LABS: BASOPHILS % 0.6 % (0.0-2.0); EOSINOPHILS % 2.8 % (0.0-5.0); HEMATOCRIT. 35.6 % (36.0-48.0); HEMOGLOBIN. 12.3 g/dL (12.0-16.0); LYMPHOCYTES % 32.6 % (20.0-50.0); MEAN CORPUSCULAR HEMOGLOBIN 33.7 pg (28.0-32.0); MEAN CORPUSCULAR VOLUME 97.7 fL (81.0-99.0); MEAN PLATELET VOLUME 9.8 fl (7.4-10.4); MONOCYTES % 7.8 % (2.0-8.0); NEUTROPHILS % 56.2 % (40.0-76.0); PLATELET 146 x1000/uL (130-400); RED BLOOD CELL COUNT 3.65 mill/uL (4.2-5.4); RED CELL DISTRIBUTION WIDTH 12.4 % (11.6-14.6)
[2021-03-31] MEDS: INSULIN LISPRO 100 UNITS/ML SUBCUT SCH ×6 (07:50→17:31)
[2021-03-31 08:00] VITALS: BP 108/79
[2021-03-31] MEDS: ENOXAPARIN 40MG/0.4ML SYR SUBCUT SCH (08:19)
[2021-03-31] MEDS ORDERED: INSULIN GLARGINE UD 100 UNITS/ML SYR SUBCUT SCH (10:00)
[2021-03-31] MEDS ORDERED: POTASSIUM CHLORIDE 20MEQ TABLET SR PO NR (10:30)
[2021-03-31] MEDS ORDERED: SODIUM CHLORIDE 0.9% 1,000 ML IV SCH (10:30)
[2021-03-31 12:00] VITALS: BP 104/72
[2021-03-31] MEDS ORDERED: POTASSIUM-SODIUM PHOSPHATE POWDER PACKET PO NR (12:45)
[2021-03-31 16:00] VITALS: BP 108/74
[2021-03-31 18:38] LABS: PHOSPHORUS 1.9 mg/dL (2.5-4.9)
[2021-03-31 19:50] VITALS: BP 121/81
[2021-03-31] MEDS ORDERED: INSULIN LISPRO 100 UNITS/ML SUBCUT SCH (20:00)
[2021-04-01] MEDS ORDERED: INSULIN LISPRO 100 UNITS/ML SUBCUT SCH (07:20)
[2021-04-01] MEDS ORDERED: INSULIN GLARGINE UD 100 UNITS/ML SYR SUBCUT SCH (10:00)
== END 2021-03-31 20:45 | disposition home or self-care (01) | DRG 871 ==
LOC: ER 20:34 → 6WST 22:56 → EDBEDREQTM 22:58 → EDBEDREQ 22:58 → SUPCPDRO 23:00 → EDBEDREQSVC 03-29 08:19 → ENRESERV 03-29 09:23
PROVIDERS: ADMIT Internal Medicine; ATTEND Internal Medicine
DX: A41.9 Sepsis, unspecified organism (principal); E11.10 Type 2 diabetes mellitus with ketoacidosis without coma; N28.9 Disorder of kidney and ureter, unspecified; R07.81 Pleurodynia; E87.6 Hypokalemia; Z20.822 Contact with and (suspected) exposure to COVID-19; Z86.16 Personal history of COVID-19; Z97.0 Presence of artificial eye
CPT/HCPCS: 36415; 70496; 70498; 71045; 80048; 80053; 80061; 80305; 80320; 81003; 82010; 82550; 82553; 82962; 83036; 83605; 83735; 83880; 84100; 84439; 84443; 84484; 85025; 85379; 87426; 93005; 93306; 99291; J1650; J1815; J2405; J2543; J3475; J3480; J3490; J7030; J7042; J7050; J7060; J8597; Q9967; A4315; G0480

== ENCOUNTER 2021-04-23 21:03 | Inpatient (IN) | payer OTHER ==
[~2021-04-23] VITALS: Ht 157.5 cm; Wt 54.0 kg
[2021-04-23] MEDS ORDERED: SODIUM CHLORIDE 0.9% 1000ML BAG (SEPSIS BOLUS) IV ONE (21:45)
[2021-04-23] MEDS ORDERED: MORPHINE SULFATE 2 MG/ML CPJ (NOT FOR IM USE) IV ONE (21:45)
[2021-04-23 22:48] LABS: CLARITY URINE CLEAR (CLEAR); COLOR URINE YELLOW (YELLOW); KETONES URINE 3+ (NEGATIVE); LEUKOCYTE ESTERASE URINE NEGATIVE (NEGATIVE); NITRITE URINE NEGATIVE (NEGATIVE); OCCULT BLOOD URINE TRACE (NEGATIVE); PROTEIN URINE 2+ (NEGATIVE); SPECIFIC GRAVITY URINE 1.026 (1.005-1.030); UROBILINOGEN URINE 0.2 E.U./dL (0.2-1.0)
[2021-04-23 23:02] LABS: HEMATOCRIT. 44.8 % (36.0-48.0); HEMOGLOBIN. 14.3 g/dL (12.0-16.0); MEAN CORPUSCULAR VOLUME 106.7 fL (81.0-99.0); MEAN PLATELET VOLUME 9.9 fl (7.4-10.4); PLATELET 348 x1000/uL (130-400); RED CELL DISTRIBUTION WIDTH 13.9 % (11.6-14.6)
[2021-04-23 23:09] LABS: CHLORIDE 90 mEq/L (98-107)
[2021-04-23 23:33] LABS: PLATELET ESTIMATE NORMAL
[2021-04-23] MEDS ORDERED: SODIUM CHLORIDE 0.9% 1,000 ML IV STA (23:42)
[2021-04-23] MEDS ORDERED: INSULIN REGULAR (HUMULIN R) 300UNITS/3ML VIAL IV ONE (23:45)
[2021-04-23 23:50] LABS: BG BASE EXCESS -26.7 mmol/L (-2.0-2.0); BG CARBOXYHEMOGLOBIN 0.4 % (0.5-1.5); BG DEOXYHEMOGLOBIN 2.5 % (0.0-5.0); BG FRACTION INSPIRED OXYGEN 21; BG HCO3 ACT 2.6 mmol/L (22.0-26.0); BG METHEMOGLOBIN 0.4 % (0.0-1.5); BG OXYGEN SATURATION 97.5 % (92.0-98.5); BG OXYHEMOGLOBIN 96.7 % (94.0-97.0); BG PCO2 10.5 mmHg (35.0-45.0); BG PH 7.004 (7.350-7.450); BG PO2 135.1 mmHg (75.0-100.0); BG SAMPLE SITE RIGHT BRACHIAL; BG TOTAL HEMOGLOBIN 13.7 g/dL (12.0-18.0); BG VENT MODE ROOM AIR
[2021-04-24] MEDS ORDERED: CEFTRIAXONE 1 G PREMIX 50 ML IV ONE
[2021-04-24 01:10] LABS: BETA HYDROXYBUTYRATE 13.5 mMol/L (0.0-0.3)
[2021-04-24 02:09] LABS: PHOSPHORUS 7.9 mg/dL (2.5-4.9)
[2021-04-24] MEDS ORDERED: INSULIN REGULAR (DRIP) 100 UNITS in SODIUM CHLORIDE 0.9% 99 ML IV SCH ×3 (04:00)
[2021-04-24 05:22] LABS: PHOSPHORUS 3.3 mg/dL (2.5-4.9)
[2021-04-24] MEDS: DEXT 5%/0.9% NACL 1,000 ML IV SCH ×3 (07:06→23:39)
[2021-04-24] MEDS ORDERED: ONDANSETRON HCL 4MG/2ML INJ IV PRN (08:15)
[2021-04-24] MEDS ORDERED: ACETAMINOPHEN 325MG TABLET PO PRN (08:15)
[2021-04-24] MEDS: PANTOPRAZOLE SODIUM 40 MG/VIAL IV SCH (09:00)
[2021-04-24] MEDS ORDERED: MAGNESIUM 2 G PREMIX 50 ML IV SCH (09:00)
[2021-04-24 14:48] LABS: CHLORIDE 106 mEq/L (98-107)
[2021-04-24] MEDS ORDERED: INSULIN REGULAR 100U/100ML PMX 100 ML IV SCH (15:19)
[2021-04-24 21:16] LABS: CHLORIDE 107 mEq/L (98-107)
[2021-04-25 00:51] LABS: CHLORIDE 110 mEq/L (98-107)
[2021-04-25 06:20] LABS: BASOPHILS % 0.4 % (0.0-2.0); EOSINOPHILS % 0.6 % (0.0-5.0); HEMATOCRIT. 33.9 % (36.0-48.0); HEMOGLOBIN. 11.8 g/dL (12.0-16.0); MEAN CORPUSCULAR HEMOGLOBIN 33.5 pg (28.0-32.0); MEAN CORPUSCULAR VOLUME 96.1 fL (81.0-99.0); MEAN PLATELET VOLUME 8.3 fl (7.4-10.4); MONOCYTES % 6.5 % (2.0-8.0); NEUTROPHILS % 67.5 % (40.0-76.0); PLATELET 232 x1000/uL (130-400); RED BLOOD CELL COUNT 3.52 mill/uL (4.2-5.4); RED CELL DISTRIBUTION WIDTH 13.3 % (11.6-14.6)
[2021-04-25 06:27] LABS: CHLORIDE 113 mEq/L (98-107)
[2021-04-25] MEDS: DEXT 5%/0.9% NACL 1,000 ML IV SCH (07:09)
[2021-04-25] MEDS: KCL 20MEQ/100ML PREMIX 100 ML IV SCH ×2 (07:57→11:22)
[2021-04-25] MEDS: PANTOPRAZOLE SODIUM 40 MG/VIAL IV SCH (09:23)
[2021-04-25] MEDS ORDERED: INSULIN GLARGINE UD 100 UNITS/ML SYR SUBCUT SCH ×2 (10:00)
[2021-04-25] MEDS ORDERED: DEXTROSE 50% WATER 50ML SYRINGE IV PRN ×2 (10:00)
[2021-04-25] MEDS ORDERED: INSULIN LISPRO 100 UNITS/ML SUBCUT SCH ×3 (11:30→12:00)
[2021-04-25] MEDS ORDERED: BLOOD SUGAR DIAGNOSTIC STRIP TEST SCH ×2 (11:30)
[2021-04-25 11:45] VITALS: BP 117/84
== END 2021-04-25 12:19 | disposition left against medical advice (07) | DRG 638 ==
LOC: ER 21:03 → MICUSO 23:47
PROVIDERS: ADMIT Internal Medicine; ATTEND Internal Medicine
DX: E10.10 Type 1 diabetes mellitus with ketoacidosis without coma (principal); E87.1 Hypo-osmolality and hyponatremia; E87.5 Hyperkalemia; D72.829 Elevated white blood cell count, unspecified; E87.8 Other disorders of electrolyte and fluid balance, not elsewhere classified; I10 Essential (primary) hypertension; F41.9 Anxiety disorder, unspecified; Z53.29 Procedure and treatment not carried out because of patient's decision for other reasons
CPT/HCPCS: 36415; 36600; 71045; 76700; 80048; 80053; 81003; 82010; 82375; 82805; 82962; 83036; 83735; 83880; 84100; 84145; 84484; 85025; 87426; 93005; 99291; C9113; J0696; J1815; J2270; J3475; J3480; J7030; J7042; J7050

== ENCOUNTER 2021-05-31 17:42 | Inpatient (IN) | payer OTHER ==
[~2021-05-31] VITALS: Ht 160 cm; Wt 59.0 kg
[2021-05-31 19:18] LABS: HEMATOCRIT. 44.1 % (36.0-48.0); HEMOGLOBIN. 14.6 g/dL (12.0-16.0); MEAN CORPUSCULAR HEMOGLOBIN 34.8 pg (28.0-32.0); MEAN CORPUSCULAR VOLUME 105.1 fL (81.0-99.0); MEAN PLATELET VOLUME 9.6 fl (7.4-10.4); PLATELET 300 x1000/uL (130-400); RED CELL DISTRIBUTION WIDTH 13.1 % (11.6-14.6)
[2021-05-31 19:21] LABS: CHLORIDE 106 mEq/L (98-107)
[2021-05-31 19:30] LABS: BETA HYDROXYBUTYRATE 8.5 mMol/L (0.0-0.3)
[2021-05-31 20:09] LABS: PLATELET ESTIMATE NORMAL
[2021-05-31] MEDS ORDERED: INSULIN REGULAR (DRIP) 100 UNITS in SODIUM CHLORIDE 0.9% 100 ML IV ONE (21:00)
[2021-05-31] MEDS ORDERED: SODIUM CHLORIDE 0.9% 1,000 ML IV ONE ×2 (21:00)
[2021-05-31] MEDS ORDERED: GUAIFENESIN 200MG/10ML SUGAR FREE UDC PO PRN (21:15)
[2021-05-31] MEDS ORDERED: CLONIDINE 0.1MG TABLET PO PRN (21:15)
[2021-05-31] MEDS ORDERED: KETOROLAC 15MG/ML VIAL IV PRN (21:15)
[2021-05-31] MEDS ORDERED: SODIUM CHLORIDE 0.9% 1,000 ML IV SCH (21:15)
[2021-05-31] MEDS ORDERED: IPRATROPIUM/ALBUTEROL 0.5-3(2.5)MG/3ML NEB NEB PRN (21:15)
[2021-05-31] MEDS ORDERED: ONDANSETRON HCL 4MG/2ML INJ IV PRN (21:15)
[2021-05-31] MEDS ORDERED: DOCUSATE SODIUM 100MG CAPSULE PO PRN (21:15)
[2021-05-31] MEDS ORDERED: ACETAMINOPHEN 325MG TABLET PO PRN ×2 (21:15)
[2021-05-31] MEDS ORDERED: MAGNESIUM/ALUMINUM HYDROXIDE/SIMETHICONE 30ML UDC PO PRN (21:15)
[2021-05-31] MEDS: ENOXAPARIN 40MG/0.4ML SYR SUBCUT SCH (21:15)
[2021-05-31] MEDS ORDERED: INSULIN REGULAR 100U/100ML PMX 100 ML IV NR (21:15)
[2021-05-31] MEDS ORDERED: ZOLPIDEM TARTRATE 5MG TABLET PO PRN (21:15)
[2021-05-31 21:27] LABS: HCG SCREEN NEGATIVE
[2021-05-31 21:42] LABS: BG BASE EXCESS -19.1 mmol/L (-2.0-2.0); BG CARBOXYHEMOGLOBIN 0.4 % (0.5-1.5); BG DEOXYHEMOGLOBIN 1.9 % (0.0-5.0); BG FRACTION INSPIRED OXYGEN 21; BG HCO3 ACT 4.7 mmol/L (22.0-26.0); BG METHEMOGLOBIN 0.2 % (0.0-1.5); BG OXYGEN SATURATION 98.1 % (92.0-98.5); BG OXYHEMOGLOBIN 97.5 % (94.0-97.0); BG PCO2 10.5 mmHg (35.0-45.0); BG PH 7.272 (7.350-7.450); BG PO2 112.5 mmHg (75.0-100.0); BG SAMPLE SITE RIGHT RADIAL; BG TOTAL HEMOGLOBIN 13.6 g/dL (12.0-18.0); BG VENT MODE ROOM AIR
[2021-05-31 21:56] LABS: PHOSPHORUS 2.9 mg/dL (2.5-4.9)
[2021-05-31] MEDS: DEXT 5%/0.45% NACL KCL 20MEQ/L 1,000 ML IV SCH (23:15)
[2021-06-01 00:10] LABS: ETHANOL BLOOD < 10 mg/dL
[2021-06-01 00:12] LABS: TOTAL IRON BINDING CAPACITY 325 ug/dL (250-450)
[2021-06-01 00:16] LABS: T4 FREE 0.74 ng/dL (0.76-1.46)
[2021-06-01 00:18] LABS: CREATINE KINASE 107 IU/L (26-192)
[2021-06-01 00:21] LABS: CREATINE KINASE MB FRACTION 3.6 ng/mL (0.5-3.6)
[2021-06-01 01:12] LABS: CLARITY URINE CLOUDY (CLEAR); COLOR URINE YELLOW (YELLOW); KETONES URINE 4+ (NEGATIVE); LEUKOCYTE ESTERASE URINE NEGATIVE (NEGATIVE); NITRITE URINE NEGATIVE (NEGATIVE); OCCULT BLOOD URINE 2+ (NEGATIVE); PROTEIN URINE 2+ (NEGATIVE); SPECIFIC GRAVITY URINE 1.016 (1.005-1.030); UROBILINOGEN URINE 0.2 E.U./dL (0.2-1.0)
[2021-06-01 01:32] LABS: *COCAINE SCREEN URINE NEGATIVE (NEGATIVE); METHADONE URINE SCREEN NEGATIVE (NEGATIVE)
[2021-06-01 01:33] LABS: *AMPHETAMINES SCREEN URINE NEGATIVE (NEGATIVE); *BARBITURATES SCREEN URINE NEGATIVE (NEGATIVE); *BENZODIAZEPINES SCREEN URINE NEGATIVE (NEGATIVE); CANNABINOID URINE SCREEN NEGATIVE (NEGATIVE); OPIATES URINE SCREEN NEGATIVE (NEGATIVE); PHENCYCLIDINE URINE SCREEN NEGATIVE (NEGATIVE)
[2021-06-01 05:33] LABS: FOLIC ACID (FOLATE) SERUM > 20.00 ng/mL (>5.38); VITAMIN B12 SERUM 375 pg/mL (211-911)
[2021-06-01] MEDS: DEXT 5%/0.45% NACL KCL 20MEQ/L 1,000 ML IV SCH ×3 (05:41→22:32)
[2021-06-01 05:52] LABS: BASOPHILS % 0.3 % (0.0-2.0); EOSINOPHILS % 0.1 % (0.0-5.0); HEMOGLOBIN. 12.4 g/dL (12.0-16.0); LYMPHOCYTES % 8.6 % (20.0-50.0); MEAN CORPUSCULAR HEMOGLOBIN 34.4 pg (28.0-32.0); MEAN CORPUSCULAR VOLUME 100.1 fL (81.0-99.0); MEAN PLATELET VOLUME 8.8 fl (7.4-10.4); MONOCYTES % 7.5 % (2.0-8.0); NEUTROPHILS % 83.5 % (40.0-76.0); PLATELET 259 x1000/uL (130-400); RED CELL DISTRIBUTION WIDTH 12.6 % (11.6-14.6)
[2021-06-01 05:54] LABS: CHLORIDE 112 mEq/L (98-107)
[2021-06-01 06:02] LABS: CREATINE KINASE 116 IU/L (26-192)
[2021-06-01 06:05] LABS: CREATINE KINASE MB FRACTION 3.5 ng/mL (0.5-3.6)
[2021-06-01 06:27] LABS: PHOSPHORUS 0.9 mg/dL (2.5-4.9)
[2021-06-01] MEDS ORDERED: DEXTROSE 50% WATER 50ML SYRINGE IV PRN ×2 (07:00)
[2021-06-01] MEDS: BLOOD SUGAR DIAGNOSTIC STRIP TEST SCH ×17 (07:08→23:39)
[2021-06-01] MEDS ORDERED: INSULIN REGULAR (DRIP) 100 UNITS in SODIUM CHLORIDE 0.9% 99 ML IV SCH ×2 (07:30→14:00)
[2021-06-01] MEDS ORDERED: POTASSIUM PHOS,M-BASIC-D-BASIC 30 MMOL in DEXT 5% WATER 500 ML IV SCH (07:30)
[2021-06-01] MEDS ORDERED: MAGNESIUM 4 G PREMIX 100 ML IV SCH (07:30)
[2021-06-01] MEDS: PANTOPRAZOLE SODIUM 40 MG/VIAL IV SCH (09:00)
[2021-06-01] MEDS ORDERED: INSULIN REGULAR 100U/100ML PMX 100 ML IV SCH (14:00)
[2021-06-01 18:38] LABS: CHLORIDE 111 mEq/L (98-107)
[2021-06-01 19:44] LABS: BASOPHILS % 0.3 % (0.0-2.0); EOSINOPHILS % 0.4 % (0.0-5.0); HEMATOCRIT. 37.8 % (36.0-48.0); LYMPHOCYTES % 16.5 % (20.0-50.0); MEAN CORPUSCULAR HEMOGLOBIN 34.5 pg (28.0-32.0); MEAN CORPUSCULAR VOLUME 100.2 fL (81.0-99.0); MEAN PLATELET VOLUME 8.9 fl (7.4-10.4); MONOCYTES % 6.9 % (2.0-8.0); NEUTROPHILS % 75.9 % (40.0-76.0); PLATELET 248 x1000/uL (130-400); RED BLOOD CELL COUNT 3.77 mill/uL (4.2-5.4); RED CELL DISTRIBUTION WIDTH 13.1 % (11.6-14.6)
[2021-06-01] MEDS: ENOXAPARIN 40MG/0.4ML SYR SUBCUT SCH (22:32)
[2021-06-02] MEDS: BLOOD SUGAR DIAGNOSTIC STRIP TEST SCH ×12 (00:34→21:37)
[2021-06-02 05:20] LABS: BASOPHILS % 0.4 % (0.0-2.0); EOSINOPHILS % 0.6 % (0.0-5.0); HEMATOCRIT. 36.8 % (36.0-48.0); LYMPHOCYTES % 29.3 % (20.0-50.0); MEAN CORPUSCULAR VOLUME 99.4 fL (81.0-99.0); MEAN PLATELET VOLUME 9.3 fl (7.4-10.4); MONOCYTES % 7.4 % (2.0-8.0); NEUTROPHILS % 62.3 % (40.0-76.0); PLATELET 224 x1000/uL (130-400); RED BLOOD CELL COUNT 3.71 mill/uL (4.2-5.4); RED CELL DISTRIBUTION WIDTH 12.8 % (11.6-14.6)
[2021-06-02 05:28] LABS: CHLORIDE 114 mEq/L (98-107)
[2021-06-02] MEDS: DEXT 5%/0.45% NACL KCL 20MEQ/L 1,000 ML IV SCH ×4 (05:32→22:02)
[2021-06-02 05:34] LABS: PHOSPHORUS 2.4 mg/dL (2.5-4.9)
[2021-06-02] MEDS: PANTOPRAZOLE SODIUM 40 MG/VIAL IV SCH (09:00)
[2021-06-02] MEDS ORDERED: DEXTROSE 50% WATER 50ML SYRINGE IV PRN (10:00)
[2021-06-02] MEDS ORDERED: POTASSIUM PHOS,M-BASIC-D-BASIC 15 MMOL in DEXT 5% WATER 245 ML IV SCH (11:00)
[2021-06-02] MEDS: INSULIN GLARGINE UD 100 UNITS/ML SYR SUBCUT SCH (11:00)
[2021-06-02] MEDS: INSULIN LISPRO 100 UNITS/ML SUBCUT SCH ×5 (11:30→21:00)
[2021-06-02] MEDS ORDERED: KETOROLAC 15MG/ML VIAL IV PRN (11:30)
[2021-06-02 12:00] VITALS: BP 115/89
[2021-06-02 14:54] VITALS: BP 104/68
[2021-06-02 16:00] VITALS: BP 112/77
[2021-06-02 20:00] VITALS: BP 112/85
[2021-06-02] MEDS: ENOXAPARIN 40MG/0.4ML SYR SUBCUT SCH (21:15)
[2021-06-03] VITALS: BP 101/64
[2021-06-03 04:00] VITALS: BP 108/62
[2021-06-03] MEDS: DEXT 5%/0.45% NACL KCL 20MEQ/L 1,000 ML IV SCH ×2 (04:16→10:30)
[2021-06-03 06:33] LABS: BASOPHILS % 0.6 % (0.0-2.0); HEMATOCRIT. 33.6 % (36.0-48.0); HEMOGLOBIN. 11.8 g/dL (12.0-16.0); LYMPHOCYTES % 36.2 % (20.0-50.0); MEAN CORPUSCULAR VOLUME 99.5 fL (81.0-99.0); MEAN PLATELET VOLUME 9.4 fl (7.4-10.4); MONOCYTES % 9.4 % (2.0-8.0); NEUTROPHILS % 52.8 % (40.0-76.0); PLATELET 210 x1000/uL (130-400); RED BLOOD CELL COUNT 3.37 mill/uL (4.2-5.4); RED CELL DISTRIBUTION WIDTH 12.7 % (11.6-14.6)
[2021-06-03 06:53] LABS: CHLORIDE 114 mEq/L (98-107)
[2021-06-03 06:59] LABS: PHOSPHORUS 3.3 mg/dL (2.5-4.9)
[2021-06-03] MEDS: INSULIN LISPRO 100 UNITS/ML SUBCUT SCH ×3 (07:02→12:20)
[2021-06-03] MEDS: BLOOD SUGAR DIAGNOSTIC STRIP TEST SCH ×2 (07:02→12:20)
[2021-06-03] MEDS: PANTOPRAZOLE SODIUM 40 MG/VIAL IV SCH (09:13)
[2021-06-03] MEDS ORDERED: POTASSIUM CHLORIDE 20MEQ TABLET SR PO NR (10:00)
[2021-06-03] MEDS: INSULIN GLARGINE UD 100 UNITS/ML SYR SUBCUT SCH (10:06)
[2021-06-03 11:58] VITALS: BP 119/64
[2021-06-03 12:00] VITALS: BP 119/64
== END 2021-06-03 12:35 | disposition home or self-care (01) | DRG 639 ==
LOC: ER 17:42 → MICUSO 21:06 → EDBEDREQTM 21:08 → EDBEDREQ 21:08 → 6EST 06-02 13:28
PROVIDERS: ADMIT Internal Medicine; ATTEND Internal Medicine
DX: E11.10 Type 2 diabetes mellitus with ketoacidosis without coma (principal); E83.51 Hypocalcemia; E88.09 Other disorders of plasma-protein metabolism, not elsewhere classified; F17.200 Nicotine dependence, unspecified, uncomplicated; Z79.4 Long term (current) use of insulin
CPT/HCPCS: 36415; 36600; 71045; 80048; 80053; 80076; 80305; 80320; 81003; 82010; 82375; 82550; 82553; 82607; 82746; 82805; 82962; 83036; 83540; 83550; 83735; 84100; 84439; 84443; 84484; 84703; 85025; 93005; 93970; 99285; C9113; J1650; J1815; J1885; J3475; J3490; J7030; J7050; J7060; G0480

== ENCOUNTER 2021-09-14 11:49 | Inpatient (IN) | payer SELFPAY ==
[~2021-09-14] VITALS: Ht 154.9 cm; Wt 55.9 kg
[2021-09-14] MEDS ORDERED: FAMOTIDINE 20MG/2ML VIAL IV STA (12:25)
[2021-09-14] MEDS ORDERED: ONDANSETRON HCL 4MG/2ML INJ IV STA (12:25)
[2021-09-14] MEDS ORDERED: INSULIN REGULAR (DRIP) 100 UNITS in SODIUM CHLORIDE 0.9% 99 ML IV ONE (12:30)
[2021-09-14] MEDS ORDERED: SODIUM CHLORIDE 0.9% 1,000 ML IV ONE ×3 (12:30→14:45)
[2021-09-14] MEDS ORDERED: INSULIN REGULAR 100U/100ML PMX 100 ML IV SCH (13:00)
[2021-09-14 13:03] LABS: BG BASE EXCESS -23.7 mmol/L (-2.0-2.0); BG CARBOXYHEMOGLOBIN 0.7 % (0.5-1.5); BG DEOXYHEMOGLOBIN 3.8 % (0.0-5.0); BG FRACTION INSPIRED OXYGEN 21; BG HCO3 ACT 3.4 mmol/L (22.0-26.0); BG METHEMOGLOBIN 0.4 % (0.0-1.5); BG OXYGEN SATURATION 96.2 % (92.0-98.5); BG OXYHEMOGLOBIN 95.1 % (94.0-97.0); BG PCO2 11.2 mmHg (35.0-45.0); BG PH 7.105 (7.350-7.450); BG PO2 100.6 mmHg (75.0-100.0); BG SAMPLE SITE RIGHT BRACHIAL; BG TOTAL HEMOGLOBIN 14.9 g/dL (12.0-18.0); BG VENT MODE ROOM AIR
[2021-09-14 13:55] LABS: HEMATOCRIT. 47.4 % (36.0-48.0); MEAN CORPUSCULAR HEMOGLOBIN 31.1 pg (28.0-32.0); MEAN CORPUSCULAR VOLUME 98.5 fL (81.0-99.0); MEAN PLATELET VOLUME 10.9 fl (7.4-10.4); PLATELET 249 x1000/uL (130-400); RED BLOOD CELL COUNT 4.82 mill/uL (4.2-5.4); RED CELL DISTRIBUTION WIDTH 16.2 % (11.6-14.6)
[2021-09-14 14:22] LABS: HCG SCREEN NEGATIVE
[2021-09-14 14:30] LABS: CHLORIDE 101 mEq/L (98-107)
[2021-09-14 14:43] LABS: ETHANOL BLOOD < 10 mg/dL
[2021-09-14] MEDS ORDERED: SODIUM BICARBONATE 8.4% 1 MEQ/ML 50ML SYR IV ONE (14:45)
[2021-09-14 14:47] LABS: PLATELET ESTIMATE NORMAL
[2021-09-14] MEDS ORDERED: SODIUM CHLORIDE 0.9% 1000ML BAG (SEPSIS BOLUS) IV ONE (16:15)
[2021-09-14] MEDS ORDERED: CEFTRIAXONE 1 G PREMIX 50 ML IV ONE (16:15)
[2021-09-14 16:26] LABS: CLARITY URINE CLEAR (CLEAR); COLOR URINE YELLOW (YELLOW); KETONES URINE 4+ (NEGATIVE); LEUKOCYTE ESTERASE URINE NEGATIVE (NEGATIVE); NITRITE URINE NEGATIVE (NEGATIVE); OCCULT BLOOD URINE TRACE (NEGATIVE); PH URINE 5.5 (4.5-8.0); PROTEIN URINE 1+ (NEGATIVE); SPECIFIC GRAVITY URINE 1.018 (1.005-1.030); UROBILINOGEN URINE 0.2 E.U./dL (0.2-1.0)
[2021-09-14] MEDS ORDERED: DOCUSATE SODIUM 100MG CAPSULE PO PRN (16:30)
[2021-09-14] MEDS ORDERED: NA PHOS,M-B/NA PHOS,DI-BA ENEMA 118ML PR PRN (16:30)
[2021-09-14] MEDS ORDERED: IPRATROPIUM/ALBUTEROL 0.5-3(2.5)MG/3ML NEB NEB PRN (16:30)
[2021-09-14] MEDS ORDERED: GUAIFENESIN 200MG/10ML SUGAR FREE UDC PO PRN (16:30)
[2021-09-14] MEDS ORDERED: ACETAMINOPHEN 325MG TABLET PO PRN ×2 (16:30)
[2021-09-14] MEDS ORDERED: MAGNESIUM/ALUMINUM HYDROXIDE/SIMETHICONE 30ML UDC PO PRN (16:30)
[2021-09-14] MEDS ORDERED: CLONIDINE 0.1MG TABLET PO PRN (16:30)
[2021-09-14] MEDS ORDERED: NITROGLYCERIN 0.4MG TABLET SL SL PRN (16:30)
[2021-09-14] MEDS ORDERED: ONDANSETRON HCL 4MG/2ML INJ IV PRN (16:30)
[2021-09-14] MEDS ORDERED: DEXTROSE 50% WATER 50ML SYRINGE IV PRN (16:30)
[2021-09-14] MEDS: BLOOD SUGAR DIAGNOSTIC STRIP TEST SCH ×7 (17:05→23:20)
[2021-09-14 17:13] LABS: INR 1.1; PROTHROMBIN TIME 11.9 sec (9.6-11.0)
[2021-09-14] MEDS: SODIUM CHL 0.45% + KCL 20MEQ/L 1,000 ML IV SCH (18:03)
[2021-09-14] MEDS: KETOROLAC 15MG/ML VIAL IV PRN (19:48)
[2021-09-14 20:51] LABS: CHLORIDE 110 mEq/L (98-107)
[2021-09-14] MEDS ORDERED: ZOLPIDEM TARTRATE 5MG TABLET PO PRN (21:00)
[2021-09-14 21:07] LABS: VITAMIN B12 SERUM 531 pg/mL (211-911)
[2021-09-14 21:17] LABS: FOLIC ACID (FOLATE) SERUM > 20.00 ng/mL (>5.38)
[2021-09-14 21:30] LABS: HDL CHOLESTEROL 39 mg/dL (40-59); LDL CHOLESTEROL 113 mg/dL (5-100); T4 FREE 0.84 ng/dL (0.76-1.46); TOTAL IRON BINDING CAPACITY 325 ug/dL (250-450)
[2021-09-14 22:24] VITALS: BP 138/81
[2021-09-14 22:30] VITALS: BP 134/83
[2021-09-14 22:45] VITALS: BP 141/126
[2021-09-14] MEDS ORDERED: BUTALBITAL/ACETAMINOPHEN/CAFFEINE 50/325/40MG TABLET PO PRN (22:45)
[2021-09-14 23:00] VITALS: BP_SYST 135; BP_SYST 138; BP_DIAS 77; BP_DIAS 81
[2021-09-14 23:02] VITALS: BP 127/80
[2021-09-14 23:30] VITALS: BP 146/61
[2021-09-15] VITALS (52 sets, daily range): BP systolic 104–161; BP diastolic 71–116
[2021-09-15] MEDS: BLOOD SUGAR DIAGNOSTIC STRIP TEST SCH ×24 (00:18→23:10)
[2021-09-15] MEDS: KETOROLAC 15MG/ML VIAL IV PRN ×2 (03:23→15:24)
[2021-09-15] MEDS: SODIUM CHL 0.45% + KCL 20MEQ/L 1,000 ML IV SCH (03:52)
[2021-09-15] MEDS: DEXTROSE 50% WATER 50ML SYRINGE IV PRN ×3 (06:06→22:10)
[2021-09-15] MEDS: PANTOPRAZOLE SODIUM 40 MG/VIAL IV SCH (08:07)
[2021-09-15] MEDS: ENOXAPARIN 40MG/0.4ML SYR SUBCUT SCH (08:08)
[2021-09-15] MEDS: DEXT 5%/0.9% NACL KCL 20MEQ/L 1,000 ML IV SCH ×3 (09:07→23:35)
[2021-09-15 09:36] LABS: CHLORIDE 112 mEq/L (98-107)
[2021-09-15 09:37] LABS: BASOPHILS % 0.2 % (0.0-2.0); EOSINOPHILS % 0.4 % (0.0-5.0); HEMATOCRIT. 37.3 % (36.0-48.0); HEMOGLOBIN. 12.1 g/dL (12.0-16.0); LYMPHOCYTES % 12.5 % (20.0-50.0); MEAN CORPUSCULAR HEMOGLOBIN 31.1 pg (28.0-32.0); MEAN PLATELET VOLUME 9.9 fl (7.4-10.4); MONOCYTES % 6.5 % (2.0-8.0); NEUTROPHILS % 80.4 % (40.0-76.0); PLATELET 134 x1000/uL (130-400); RED BLOOD CELL COUNT 3.89 mill/uL (4.2-5.4); RED CELL DISTRIBUTION WIDTH 15.8 % (11.6-14.6)
[2021-09-15 10:07] LABS: PHOSPHORUS 0.7 mg/dL (2.5-4.9)
[2021-09-15] MEDS ORDERED: POTASSIUM PHOS,M-BASIC-D-BASIC 30 MMOL in DEXT 5% WATER 500 ML IV NR (13:00)
[2021-09-15] MEDS ORDERED: MAGNESIUM 4 G PREMIX 100 ML IV NR (13:00)
[2021-09-15] MEDS: INSULIN REGULAR 100U/100ML PMX 100 ML IV SCH ×2 (17:53→21:30)
[2021-09-15 20:51] LABS: CHLORIDE 110 mEq/L (98-107)
[2021-09-15 20:54] LABS: PHOSPHORUS 1.6 mg/dL (2.5-4.9)
[2021-09-16] VITALS (32 sets, daily range): BP systolic 96–149; BP diastolic 60–94
[2021-09-16] MEDS: BLOOD SUGAR DIAGNOSTIC STRIP TEST SCH ×11 (00:02→10:30)
[2021-09-16] MEDS ORDERED: MAGNESIUM 2 G PREMIX 50 ML IV NR (00:30)
[2021-09-16] MEDS ORDERED: POTASSIUM PHOS,M-BASIC-D-BASIC 30 MMOL in DEXT 5% WATER 500 ML IV NR (01:00)
[2021-09-16 01:40] LABS: CHLORIDE 113 mEq/L (98-107)
[2021-09-16 05:31] LABS: BASOPHILS % 0.7 % (0.0-2.0); EOSINOPHILS % 2.6 % (0.0-5.0); HEMATOCRIT. 32.7 % (36.0-48.0); HEMOGLOBIN. 10.8 g/dL (12.0-16.0); LYMPHOCYTES % 28.3 % (20.0-50.0); MEAN CORPUSCULAR HEMOGLOBIN 31.1 pg (28.0-32.0); MEAN PLATELET VOLUME 9.9 fl (7.4-10.4); NEUTROPHILS % 62.4 % (40.0-76.0); PLATELET 134 x1000/uL (130-400); RED BLOOD CELL COUNT 3.48 mill/uL (4.2-5.4); RED CELL DISTRIBUTION WIDTH 15.7 % (11.6-14.6)
[2021-09-16 05:39] LABS: CHLORIDE 114 mEq/L (98-107)
[2021-09-16 05:47] LABS: PHOSPHORUS 1.9 mg/dL (2.5-4.9)
[2021-09-16] MEDS: DEXT 5%/0.9% NACL KCL 20MEQ/L 1,000 ML IV SCH (06:21)
[2021-09-16 10:02] LABS: CHLORIDE 116 mEq/L (98-107)
[2021-09-16] MEDS ORDERED: INSULIN GLARGINE 100 UNITS/ML SUBCUT SCH (10:30)
[2021-09-16] MEDS: DEXTROSE 50% WATER 50ML SYRINGE IV PRN (10:30)
[2021-09-16] MEDS ORDERED: DEXTROSE 50% WATER 50ML SYRINGE IV PRN (10:30)
[2021-09-16] MEDS: PANTOPRAZOLE SODIUM 40 MG/VIAL IV SCH (10:32)
[2021-09-16] MEDS: ENOXAPARIN 40MG/0.4ML SYR SUBCUT SCH (10:32)
[2021-09-16] MEDS ORDERED: KCL 20MEQ/100ML PREMIX 100 ML IV SCH (11:00)
[2021-09-16] MEDS ORDERED: BLOOD SUGAR DIAGNOSTIC STRIP TEST SCH (11:30)
[2021-09-16] MEDS ORDERED: INSULIN LISPRO 100 UNITS/ML SUBCUT SCH ×2 (11:30→12:00)
== END 2021-09-16 16:30 | disposition left against medical advice (07) | DRG 720 ==
LOC: ER 11:49 → MICUNO 15:47 → UNDOADMIN 15:47 → EDBEDREQ 15:49 → EDBEDREQTM 15:49 → ENRESERV 19:32
PROVIDERS: ADMIT Internal Medicine; ATTEND Internal Medicine
DX: A41.9 Sepsis, unspecified organism (principal); E11.10 Type 2 diabetes mellitus with ketoacidosis without coma; I50.9 Heart failure, unspecified; E88.09 Other disorders of plasma-protein metabolism, not elsewhere classified; E86.0 Dehydration; R74.01 Elevation of levels of liver transaminase levels; R79.89 Other specified abnormal findings of blood chemistry; Z79.4 Long term (current) use of insulin; Z91.19 Patient's noncompliance with other medical treatment and regimen; Z53.29 Procedure and treatment not carried out because of patient's decision for other reasons
CPT/HCPCS: 36415; 36600; 71045; 80048; 80053; 80061; 80320; 81003; 82010; 82375; 82607; 82746; 82805; 82962; 83036; 83540; 83550; 83605; 83735; 83880; 83930; 84100; 84439; 84443; 84484; 84703; 85025; 93005; 93970; 99291; C9113; J0696; J1650; J1815; J1885; J2405; J3475; J3480; J3490; J7030; J7050; J7060; G0480

== ENCOUNTER 2021-12-27 13:29 | Inpatient (IN) | payer SELFPAY ==
[2021-12-27] VITALS (17 sets, daily range): BP systolic 104–148; BP diastolic 67–111
[~2021-12-27] VITALS: Ht 160 cm; Wt 38.6 kg
[2021-12-27] MEDS ORDERED: SODIUM CHLORIDE 0.9% 1000ML BAG (SEPSIS BOLUS) IV ONE (14:00)
[2021-12-27 14:17] LABS: HEMATOCRIT. 42.6 % (36.0-48.0); HEMOGLOBIN. 13.2 g/dL (12.0-16.0); MEAN CORPUSCULAR HEMOGLOBIN 32.3 pg (28.0-32.0); MEAN CORPUSCULAR VOLUME 104.2 fL (81.0-99.0); MEAN PLATELET VOLUME 9.3 fl (7.4-10.4); PLATELET 255 x1000/uL (130-400); RED BLOOD CELL COUNT 4.08 mill/uL (4.2-5.4)
[2021-12-27] MEDS ORDERED: SODIUM BICARBONATE 150 MEQ in SODIUM CHLORIDE 0.45% 1,000 ML IV STA (14:20)
[2021-12-27 14:26] LABS: CHLORIDE 99 mEq/L (98-107)
[2021-12-27] MEDS ORDERED: SODIUM BICARBONATE 8.4% 1 MEQ/ML 50ML SYR IV ONE (14:30)
[2021-12-27 14:37] LABS: BETA HYDROXYBUTYRATE 8.9 mMol/L (0.0-0.3); ETHANOL BLOOD 101 mg/dL
[2021-12-27 14:53] LABS: HCG SCREEN NEGATIVE
[2021-12-27] MEDS ORDERED: VANCOMYCIN 1G PREMIX 200 ML IV ONE (15:00)
[2021-12-27] MEDS ORDERED: INSULIN REGULAR (DRIP) 100 UNITS in SODIUM CHLORIDE 0.9% 100 ML IV ONE (15:00)
[2021-12-27] MEDS ORDERED: PIPERACILLIN/TAZ 3.375G PREMIX 50 ML IV ONE (15:00)
[2021-12-27] MEDS ORDERED: INSULIN REGULAR 100U/100ML PMX 100 ML IV PRN (15:15)
[2021-12-27 15:37] LABS: PLATELET ESTIMATE NORMAL
[2021-12-27 15:44] LABS: BG CARBOXYHEMOGLOBIN 0.7 % (0.5-1.5); BG DEOXYHEMOGLOBIN 2.7 % (0.0-5.0); BG FRACTION INSPIRED OXYGEN 21; BG METHEMOGLOBIN 0.6 % (0.0-1.5); BG OXYGEN SATURATION 97.3 % (92.0-98.5); BG PCO2 < 8.9 mmHg (35.0-45.0); BG PH 6.945 (7.350-7.450); BG PO2 127.1 mmHg (75.0-100.0); BG SAMPLE SITE RIGHT BRACHIAL; BG VENT MODE ROOM AIR
[2021-12-27] MEDS: BLOOD SUGAR DIAGNOSTIC STRIP TEST SCH ×9 (16:00→23:00)
[2021-12-27 16:56] LABS: CLARITY URINE CLEAR (CLEAR); COLOR URINE YELLOW (YELLOW); KETONES URINE 3+ (NEGATIVE); LEUKOCYTE ESTERASE URINE NEGATIVE (NEGATIVE); NITRITE URINE NEGATIVE (NEGATIVE); OCCULT BLOOD URINE TRACE (NEGATIVE); PROTEIN URINE 2+ (NEGATIVE); SPECIFIC GRAVITY URINE 1.017 (1.005-1.030); UROBILINOGEN URINE 0.2 E.U./dL (0.2-1.0)
[2021-12-27] MEDS ORDERED: INSULIN REGULAR 100U/100ML PMX 100 ML IV SCH (17:15)
[2021-12-27] MEDS ORDERED: ONDANSETRON HCL 4MG/2ML INJ IV PRN (17:15)
[2021-12-27] MEDS ORDERED: KETOROLAC 15MG/ML VIAL IV PRN (17:15)
[2021-12-27] MEDS ORDERED: DEXTROSE 50% WATER 50ML SYRINGE IV PRN ×2 (17:15)
[2021-12-27] MEDS ORDERED: ACETAMINOPHEN 325MG TABLET PO PRN ×2 (17:15)
[2021-12-27] MEDS ORDERED: IPRATROPIUM/ALBUTEROL 0.5-3(2.5)MG/3ML NEB NEB PRN (17:15)
[2021-12-27 17:16] LABS: CHLORIDE 103 mEq/L (98-107)
[2021-12-27 17:22] LABS: PHOSPHORUS 4.5 mg/dL (2.5-4.9)
[2021-12-27] MEDS ORDERED: SODIUM CHL 0.9% + KCL 20MEQ/L 1,000 ML IV SCH (17:30)
[2021-12-27] MEDS: SODIUM CHLORIDE 0.9% 1000ML BAG (SEPSIS BOLUS) IV NR ×2 (17:49→18:55)
[2021-12-27 17:59] LABS: *AMPHETAMINES SCREEN URINE NEGATIVE (NEGATIVE); *BARBITURATES SCREEN URINE NEGATIVE (NEGATIVE); *BENZODIAZEPINES SCREEN URINE NEGATIVE (NEGATIVE); *COCAINE SCREEN URINE NEGATIVE (NEGATIVE); CANNABINOID URINE SCREEN NEGATIVE (NEGATIVE); METHADONE URINE SCREEN NEGATIVE (NEGATIVE); OPIATES URINE SCREEN NEGATIVE (NEGATIVE); PHENCYCLIDINE URINE SCREEN NEGATIVE (NEGATIVE)
[2021-12-27 18:11] LABS: T4 FREE 0.53 ng/dL (0.76-1.46)
[2021-12-27 18:37] LABS: VITAMIN B12 SERUM 585 pg/mL (211-911)
[2021-12-27] MEDS ORDERED: ENOXAPARIN 40MG/0.4ML SYR SUBCUT SCH (21:00)
[2021-12-27] MEDS: SODIUM CHL 0.9% + KCL 20MEQ/L 1,000 ML IV SCH (21:00)
[2021-12-27] MEDS ORDERED: MAGNESIUM 2 G PREMIX 50 ML IV NR (21:00)
[2021-12-27] MEDS ORDERED: PIPERACILLIN/TAZ 3.375G PREMIX 50 ML IV NR (21:00)
[2021-12-27] MEDS: DEXT 5%/0.9% NACL KCL 20MEQ/L 1,000 ML IV SCH (21:23)
[2021-12-27 21:51] LABS: CHLORIDE 105 mEq/L (98-107)
[2021-12-27] MEDS: PIPERACILLIN/TAZOBACTAM 3.375G in DEXT 5% WATER 50ML IV SCH (21:52)
[2021-12-27 22:01] LABS: PHOSPHORUS 1.3 mg/dL (2.5-4.9)
[2021-12-28] VITALS (17 sets, daily range): BP systolic 92–134; BP diastolic 60–89
[2021-12-28] MEDS: BLOOD SUGAR DIAGNOSTIC STRIP TEST SCH ×12 (00:39→20:49)
[2021-12-28 02:46] LABS: CHLORIDE 107 mEq/L (98-107)
[2021-12-28] MEDS: SODIUM CHL 0.9% + KCL 20MEQ/L 1,000 ML IV SCH ×3 (03:40→17:00)
[2021-12-28] MEDS: DEXT 5%/0.9% NACL KCL 20MEQ/L 1,000 ML IV SCH ×3 (04:51→17:00)
[2021-12-28] MEDS ORDERED: VANCOMYCIN 1G PREMIX 200 ML IV SCH ×2 (05:00)
[2021-12-28 05:22] LABS: BASOPHILS % 0.3 % (0.0-2.0); EOSINOPHILS % 0.6 % (0.0-5.0); HEMATOCRIT. 34.2 % (36.0-48.0); HEMOGLOBIN. 11.6 g/dL (12.0-16.0); LYMPHOCYTES % 14.8 % (20.0-50.0); MEAN CORPUSCULAR HEMOGLOBIN 32.6 pg (28.0-32.0); MEAN CORPUSCULAR VOLUME 96.2 fL (81.0-99.0); MONOCYTES % 7.1 % (2.0-8.0); NEUTROPHILS % 77.2 % (40.0-76.0); PLATELET 170 x1000/uL (130-400); RED BLOOD CELL COUNT 3.55 mill/uL (4.2-5.4); RED CELL DISTRIBUTION WIDTH 14.2 % (11.6-14.6)
[2021-12-28] MEDS: PIPERACILLIN/TAZOBACTAM 3.375G in DEXT 5% WATER 50ML IV SCH ×2 (05:32→13:48)
[2021-12-28] MEDS ORDERED: PIPERACILLIN/TAZOBACTAM 3.375G in DEXT 5% WATER 50ML IV SCH (06:00)
[2021-12-28 06:31] LABS: CHLORIDE 108 mEq/L (98-107)
[2021-12-28 07:15] LABS: PHOSPHORUS 0.4 mg/dL (2.5-4.9)
[2021-12-28] MEDS ORDERED: PANTOPRAZOLE SODIUM 40 MG/VIAL IV SCH (09:00)
[2021-12-28] MEDS ORDERED: MAGNESIUM 2 G PREMIX 50 ML IV NR (10:30)
[2021-12-28] MEDS ORDERED: POTASSIUM PHOS,M-BASIC-D-BASIC 30 MMOL in DEXT 5% WATER 500 ML IV NR (10:30)
[2021-12-28] MEDS ORDERED: INSULIN GLARGINE 100 UNITS/ML SUBCUT SCH (10:45)
[2021-12-28] MEDS ORDERED: DEXTROSE 50% WATER 50ML SYRINGE IV PRN (10:45)
[2021-12-28] MEDS: INSULIN LISPRO 100 UNITS/ML SUBCUT SCH ×5 (11:30→20:49)
[2021-12-28] MEDS ORDERED: VANCOMYCIN 750MG PREMIX 150 ML IV SCH (21:00)
== END 2021-12-28 21:08 | disposition left against medical advice (07) | DRG 720 ==
LOC: ER 13:29 → EDBEDREQ 14:59 → MICUSO 17:07 → EDBEDREQ 17:18
PROVIDERS: ADMIT Internal Medicine; ATTEND Internal Medicine
DX: A41.9 Sepsis, unspecified organism (principal); E10.10 Type 1 diabetes mellitus with ketoacidosis without coma; I95.9 Hypotension, unspecified; E83.42 Hypomagnesemia; R65.20 Severe sepsis without septic shock; Z53.29 Procedure and treatment not carried out because of patient's decision for other reasons; Z79.899 Other long term (current) drug therapy; Z79.4 Long term (current) use of insulin
CPT/HCPCS: 36415; 36600; 71045; 80048; 80053; 80061; 80305; 80320; 81003; 82010; 82375; 82607; 82746; 82805; 82962; 83036; 83540; 83550; 83605; 83735; 84100; 84145; 84439; 84443; 84484; 84703; 85025; 93005; 93306; 93970; 99291; C9113; J1650; J1815; J1885; J2543; J3370; J3475; J3480; J3490; J7030; J7060; G0480

== ENCOUNTER 2022-04-06 10:34 | Emergency (ER) | payer SELFPAY ==
[~2022-04-06] VITALS: Ht 157.5 cm; Wt 49.0 kg
[2022-04-06 10:38] VITALS: BP 117/84
[2022-04-06] MEDS ORDERED: LANTUSUD SUBCUT (11:34)
[2022-04-06] MEDS ORDERED: INSLIS SUBCUT (11:34)
[2022-04-06] MEDS ORDERED: NEED-472 SQ (11:34)
== END 2022-04-06 12:11 | disposition home or self-care (01) ==
LOC: ER 10:34
DX: Z76.0 Encounter for issue of repeat prescription (principal); E11.9 Type 2 diabetes mellitus without complications; Z79.84 Long term (current) use of oral hypoglycemic drugs
CPT/HCPCS: 99281; 99283

== ENCOUNTER 2022-04-12 06:50 | Inpatient (IN) | payer SELFPAY ==
[~2022-04-12] VITALS: Ht 157.5 cm; Wt 57.2 kg
[~2022-04-12 06:50] MED LIST changes: +NEED-472 SQ
[2022-04-12] MEDS ORDERED: ONDANSETRON HCL 4MG/2ML INJ IV ONE (07:15)
[2022-04-12] MEDS ORDERED: SODIUM CHLORIDE 0.9% 1,000 ML IV ONE ×2 (07:15→08:15)
[2022-04-12 07:34] LABS: BASOPHILS % 0.5 % (0.0-2.0); HEMATOCRIT. 45.7 % (36.0-48.0); HEMOGLOBIN. 13.1 g/dL (12.0-16.0); LYMPHOCYTES % 12.6 % (20.0-50.0); MEAN CORPUSCULAR VOLUME 122.3 fL (81.0-99.0); MEAN PLATELET VOLUME 9.4 fl (7.4-10.4); MONOCYTES % 7.1 % (2.0-8.0); NEUTROPHILS % 79.8 % (40.0-76.0); PLATELET 254 x1000/uL (130-400); RED BLOOD CELL COUNT 3.73 mill/uL (4.2-5.4); RED CELL DISTRIBUTION WIDTH 15.2 % (11.6-14.6)
[2022-04-12] MEDS ORDERED: FAMOTIDINE 20MG/2ML VIAL IV ONE (08:15)
[2022-04-12] MEDS ORDERED: MORPHINE SULFATE 2 MG/ML CPJ (NOT FOR IM USE) IV ONE (08:15)
[2022-04-12 08:17] LABS: PLATELET ESTIMATE NORMAL
[2022-04-12] MEDS ORDERED: LIDOCAINE HCL/PF 1% 2ML VIAL ONE (08:32)
[2022-04-12 08:35] LABS: BG CARBOXYHEMOGLOBIN 0.1 % (0.5-1.5); BG DEOXYHEMOGLOBIN 1.4 % (0.0-5.0); BG METHEMOGLOBIN 0.7 % (0.0-1.5); BG OXYGEN SATURATION 98.6 % (92.0-98.5); BG OXYHEMOGLOBIN 97.8 % (94.0-97.0); BG PCO2 14.3 mmHg (35.0-45.0); BG PH < 6.680 (7.350-7.450); BG PO2 194.1 mmHg (75.0-100.0); BG SAMPLE SITE RIGHT BRACHIAL; BG TOTAL HEMOGLOBIN 11.9 g/dL (12.0-18.0); BG VENT MODE MASK - SIMPLE
[2022-04-12] MEDS ORDERED: SODIUM BICARBONATE 8.4% 1 MEQ/ML 50ML SYR IV ONE (08:45)
[2022-04-12] MEDS ORDERED: SODIUM BICARBONATE 150 MEQ in SODIUM CHLORIDE 0.45% 1,000 ML IV STA (08:54)
[2022-04-12 09:49] LABS: CHLORIDE 99 mEq/L (98-107)
[2022-04-12 10:00] LABS: *AMPHETAMINES SCREEN URINE NEGATIVE (NEGATIVE); *BARBITURATES SCREEN URINE NEGATIVE (NEGATIVE); *BENZODIAZEPINES SCREEN URINE NEGATIVE (NEGATIVE); *COCAINE SCREEN URINE NEGATIVE (NEGATIVE); CANNABINOID URINE SCREEN NEGATIVE (NEGATIVE); METHADONE URINE SCREEN NEGATIVE (NEGATIVE); OPIATES URINE SCREEN NEGATIVE (NEGATIVE); PHENCYCLIDINE URINE SCREEN NEGATIVE (NEGATIVE)
[2022-04-12] MEDS ORDERED: INSULIN REGULAR (HUMULIN R) 300UNITS/3ML VIAL IV SCH (10:15)
[2022-04-12] MEDS ORDERED: TETRACAINE 0.5% OPHTH DROPS 4ML LEFTEYE ONE (10:15)
[2022-04-12 10:28] LABS: BETA HYDROXYBUTYRATE 7.6 mMol/L (0.0-0.3); ETHANOL BLOOD 66 mg/dL
[2022-04-12 10:29] LABS: BG BASE EXCESS -30.2 mmol/L (-2.0-2.0); BG CARBOXYHEMOGLOBIN 2.4 % (0.5-1.5); BG DEOXYHEMOGLOBIN 0.1 % (0.0-5.0); BG HCO3 ACT 2.7 mmol/L (22.0-26.0); BG METHEMOGLOBIN 0.1 % (0.0-1.5); BG OXYGEN SATURATION 99.9 % (92.0-98.5); BG OXYHEMOGLOBIN 97.4 % (94.0-97.0); BG PCO2 16.7 mmHg (35.0-45.0); BG PH 6.834 (7.350-7.450); BG PO2 160.7 mmHg (75.0-100.0); BG SAMPLE SITE RIGHT BRACHIAL; BG TOTAL HEMOGLOBIN 12.7 g/dL (12.0-18.0); BG VENT MODE MASK - SIMPLE
[2022-04-12] MEDS ORDERED: DEXTROSE 50% WATER 50ML SYRINGE IV PRN (12:30)
[2022-04-12] MEDS ORDERED: ONDANSETRON HCL 4MG/2ML INJ IV PRN (12:30)
[2022-04-12] MEDS ORDERED: CEFTRIAXONE 1 G PREMIX 50 ML IV SCH (13:00)
[2022-04-12] MEDS ORDERED: INSULIN GLARGINE 100 UNITS/ML SUBCUT SCH (13:00)
[2022-04-12] MEDS: SODIUM BICARBONATE 150 MEQ in DEXTROSE 5% WATER 1,000 ML IV SCH (13:00)
[2022-04-12] MEDS: BLOOD SUGAR DIAGNOSTIC STRIP TEST SCH ×3 (13:17→21:00)
[2022-04-12] MEDS: INSULIN LISPRO 100 UNITS/ML SUBCUT SCH ×4 (13:17→22:06)
[2022-04-12] MEDS: THIAMINE HCL 100MG TABLET PO SCH (13:20)
[2022-04-12 13:54] LABS: BG BASE EXCESS -20.7 mmol/L (-2.0-2.0); BG CARBOXYHEMOGLOBIN 0.1 % (0.5-1.5); BG DEOXYHEMOGLOBIN 5.5 % (0.0-5.0); BG HCO3 ACT 5.6 mmol/L (22.0-26.0); BG METHEMOGLOBIN 0.3 % (0.0-1.5); BG OXYGEN SATURATION 94.5 % (92.0-98.5); BG OXYHEMOGLOBIN 94.1 % (94.0-97.0); BG PCO2 15.8 mmHg (35.0-45.0); BG PH 7.169 (7.350-7.450); BG PO2 77.8 mmHg (75.0-100.0); BG SAMPLE SITE RIGHT RADIAL; BG TOTAL HEMOGLOBIN 12.8 g/dL (12.0-18.0); BG VENT MODE NASAL CANNULA
[2022-04-12] MEDS ORDERED: CALCIUM GLUCONATE 1GM PREMIX 50 ML IV NR (15:30)
[2022-04-12] MEDS: LORAZEPAM 2MG/ML CPJ IV PRN ×2 (15:32→22:06)
[2022-04-12] MEDS ORDERED: METOCLOPRAMIDE HCL 10MG/2ML VIAL IV ONE (16:30)
[2022-04-12] MEDS ORDERED: DIGOXIN 500MCG/2ML AMP IV NR (17:00)
[2022-04-12 18:30] VITALS: BP 139/71
[2022-04-12] MEDS: METOPROLOL SUCCINATE 50MG ER TABLET PO SCH (19:41)
[2022-04-12 20:00] VITALS: BP 120/66
[2022-04-12 22:00] VITALS: BP 106/66
[2022-04-12] MEDS: INSULIN GLARGINE 100 UNITS/ML SUBCUT SCH (22:05)
[2022-04-12] MEDS: CHLORDIAZEPOXIDE 25MG CAPSULE PO SCH (22:06)
[2022-04-12 22:21] VITALS: BP 97/39
[2022-04-13] VITALS (19 sets, daily range): BP systolic 79–140; BP diastolic 45–68
[2022-04-13] MEDS: SODIUM BICARBONATE 150 MEQ in DEXTROSE 5% WATER 1,000 ML IV SCH (00:19)
[2022-04-13] MEDS: ACETAMINOPHEN 325MG TABLET PO PRN ×2 (04:06→10:28)
[2022-04-13] MEDS: CHLORDIAZEPOXIDE 25MG CAPSULE PO SCH ×3 (05:02→21:07)
[2022-04-13] MEDS ORDERED: METOCLOPRAMIDE HCL 10MG/2ML VIAL IV PRN (05:17)
[2022-04-13 07:07] LABS: HEMATOCRIT. 34.9 % (36.0-48.0); HEMOGLOBIN. 12.4 g/dL (12.0-16.0); MEAN CORPUSCULAR HEMOGLOBIN 34.9 pg (28.0-32.0); MEAN CORPUSCULAR VOLUME 98.6 fL (81.0-99.0); MEAN PLATELET VOLUME 9.9 fl (7.4-10.4); PLATELET 118 x1000/uL (130-400); RED BLOOD CELL COUNT 3.54 mill/uL (4.2-5.4); RED CELL DISTRIBUTION WIDTH 13.5 % (11.6-14.6)
[2022-04-13] MEDS: BLOOD SUGAR DIAGNOSTIC STRIP TEST SCH ×4 (07:30→20:14)
[2022-04-13] MEDS: INSULIN LISPRO 100 UNITS/ML SUBCUT SCH ×4 (08:00→21:05)
[2022-04-13] MEDS: THIAMINE HCL 100MG TABLET PO SCH (10:14)
[2022-04-13] MEDS: MULTIVITAMINS,THER W-MINERALS TABLET PO SCH (10:14)
[2022-04-13] MEDS: METOPROLOL SUCCINATE 50MG ER TABLET PO SCH ×3 (10:15→21:06)
[2022-04-13] MEDS: FOLIC ACID 1MG TABLET PO SCH (10:21)
[2022-04-13] MEDS: INSULIN GLARGINE 100 UNITS/ML SUBCUT SCH ×2 (10:25→21:05)
[2022-04-13] MEDS ORDERED: IPRATROPIUM BROMIDE (0.02%) 0.5MG/2.5ML NEB HHN PRN (12:15)
[2022-04-13 13:40] LABS: BG BASE EXCESS 11.6 mmol/L (-2.0-2.0); BG CARBOXYHEMOGLOBIN 0.9 % (0.5-1.5); BG DEOXYHEMOGLOBIN 8.2 % (0.0-5.0); BG FRACTION INSPIRED OXYGEN 36; BG HCO3 ACT 35.1 mmol/L (22.0-26.0); BG METHEMOGLOBIN 0.3 % (0.0-1.5); BG OXYGEN SATURATION 91.7 % (92.0-98.5); BG OXYHEMOGLOBIN 90.6 % (94.0-97.0); BG SAMPLE SITE RIGHT BRACHIAL; BG TOTAL HEMOGLOBIN 12.8 g/dL (12.0-18.0); BG VENT MODE NASAL CANNULA
[2022-04-13] MEDS: CEFTRIAXONE 1,000 MG in DEXTROSE 5% WATER 50 ML IV SCH (16:00)
[2022-04-13 17:31] LABS: PLATELET ESTIMATE DECREASED
[2022-04-13] MEDS: IPRATROPIUM BROMIDE (0.02%) 0.5MG/2.5ML NEB HHN SCH (20:17)
[2022-04-14] VITALS (12 sets, daily range): BP systolic 90–115; BP diastolic 60–97
[2022-04-14] MEDS: IPRATROPIUM BROMIDE (0.02%) 0.5MG/2.5ML NEB HHN SCH ×4 (02:00→20:43)
[2022-04-14] MEDS: CHLORDIAZEPOXIDE 25MG CAPSULE PO SCH ×3 (05:10→21:19)
[2022-04-14 06:11] LABS: BASOPHILS % 0.2 % (0.0-2.0); EOSINOPHILS % 0.6 % (0.0-5.0); HEMATOCRIT. 35.2 % (36.0-48.0); HEMOGLOBIN. 11.9 g/dL (12.0-16.0); LYMPHOCYTES % 19.3 % (20.0-50.0); MEAN CORPUSCULAR HEMOGLOBIN 34.2 pg (28.0-32.0); MEAN CORPUSCULAR VOLUME 100.7 fL (81.0-99.0); MEAN PLATELET VOLUME 9.7 fl (7.4-10.4); MONOCYTES % 4.6 % (2.0-8.0); NEUTROPHILS % 75.3 % (40.0-76.0); PLATELET 84 x1000/uL (130-400); RED BLOOD CELL COUNT 3.49 mill/uL (4.2-5.4); RED CELL DISTRIBUTION WIDTH 14.2 % (11.6-14.6)
[2022-04-14] MEDS ORDERED: POTASSIUM CHLORIDE 20MEQ TABLET SR PO NR (07:15)
[2022-04-14] MEDS: BLOOD SUGAR DIAGNOSTIC STRIP TEST SCH ×4 (07:30→20:54)
[2022-04-14] MEDS: INSULIN LISPRO 100 UNITS/ML SUBCUT SCH ×4 (08:00→21:18)
[2022-04-14] MEDS ORDERED: POTASSIUM CHLORIDE INJ 40 MEQ in DEXT 5% WATER 500 ML IV NR (08:30)
[2022-04-14] MEDS: THIAMINE HCL 100MG TABLET PO SCH (09:57)
[2022-04-14] MEDS: FOLIC ACID 1MG TABLET PO SCH (09:57)
[2022-04-14] MEDS: MULTIVITAMINS,THER W-MINERALS TABLET PO SCH (09:57)
[2022-04-14] MEDS: METOPROLOL SUCCINATE 50MG ER TABLET PO SCH ×2 (09:57→20:51)
[2022-04-14] MEDS: INSULIN GLARGINE 100 UNITS/ML SUBCUT SCH ×2 (10:00→21:19)
[2022-04-14] MEDS: CEFTRIAXONE 1,000 MG in DEXTROSE 5% WATER 50 ML IV SCH (16:15)
[2022-04-14] MEDS: AZITHROMYCIN 500 MG in DEXT 5% WATER 250 ML IV SCH (16:15)
[2022-04-14] MEDS: MAGNESIUM OXIDE 400MG TABLET PO SCH (20:54)
[2022-04-15] VITALS (10 sets, daily range): BP systolic 94–144; BP diastolic 48–74
[2022-04-15] MEDS: ACETAMINOPHEN 325MG TABLET PO PRN (00:34)
[2022-04-15] MEDS: IPRATROPIUM BROMIDE (0.02%) 0.5MG/2.5ML NEB HHN SCH ×3 (01:28→15:06)
[2022-04-15] MEDS: CHLORDIAZEPOXIDE 25MG CAPSULE PO SCH ×2 (05:37→14:03)
[2022-04-15 06:52] LABS: BASOPHILS % 0.5 % (0.0-2.0); EOSINOPHILS % 2.7 % (0.0-5.0); HEMATOCRIT. 25.6 % (36.0-48.0); HEMOGLOBIN. 8.7 g/dL (12.0-16.0); LYMPHOCYTES % 23.6 % (20.0-50.0); MEAN CORPUSCULAR HEMOGLOBIN 34.5 pg (28.0-32.0); MEAN CORPUSCULAR VOLUME 102.3 fL (81.0-99.0); MEAN PLATELET VOLUME 10.1 fl (7.4-10.4); MONOCYTES % 5.2 % (2.0-8.0); PLATELET 90 x1000/uL (130-400); RED BLOOD CELL COUNT 2.51 mill/uL (4.2-5.4); RED CELL DISTRIBUTION WIDTH 13.9 % (11.6-14.6)
[2022-04-15 06:57] LABS: CHLORIDE 105 mEq/L (98-107)
[2022-04-15] MEDS: BLOOD SUGAR DIAGNOSTIC STRIP TEST SCH ×3 (07:30→17:15)
[2022-04-15] MEDS: INSULIN LISPRO 100 UNITS/ML SUBCUT SCH ×3 (08:00→17:15)
[2022-04-15] MEDS: MAGNESIUM OXIDE 400MG TABLET PO SCH (09:00)
[2022-04-15] MEDS: INSULIN GLARGINE 100 UNITS/ML SUBCUT SCH (09:38)
[2022-04-15 10:07] LABS: BG CARBOXYHEMOGLOBIN 1.2 % (0.5-1.5); BG DEOXYHEMOGLOBIN 5.2 % (0.0-5.0); BG FRACTION INSPIRED OXYGEN 22; BG HCO3 ACT 22.7 mmol/L (22.0-26.0); BG METHEMOGLOBIN 0.2 % (0.0-1.5); BG OXYGEN SATURATION 94.7 % (92.0-98.5); BG OXYHEMOGLOBIN 93.4 % (94.0-97.0); BG PCO2 31.1 mmHg (35.0-45.0); BG PH 7.482 (7.350-7.450); BG PO2 75.6 mmHg (75.0-100.0); BG SAMPLE SITE RIGHT RADIAL; BG TOTAL HEMOGLOBIN 11.8 g/dL (12.0-18.0); BG VENT MODE NASAL CANNULA
[2022-04-15] MEDS: THIAMINE HCL 100MG TABLET PO SCH (10:40)
[2022-04-15] MEDS: FOLIC ACID 1MG TABLET PO SCH (10:40)
[2022-04-15] MEDS: MULTIVITAMINS,THER W-MINERALS TABLET PO SCH (10:40)
[2022-04-15] MEDS: METOPROLOL SUCCINATE 50MG ER TABLET PO SCH (10:41)
[2022-04-15 13:12] LABS: METHANOL BLOOD <.010 g/dL (0.000-0.010)
[2022-04-15] MEDS: AZITHROMYCIN 500 MG in DEXT 5% WATER 250 ML IV SCH (14:03)
[2022-04-15] MEDS: CEFTRIAXONE 1,000 MG in DEXTROSE 5% WATER 50 ML IV SCH (17:48)
[2022-04-16 04:10] LABS: ETHYLENE GLYCOL <5 mg/dL (None detected)
== END 2022-04-15 19:40 | disposition home or self-care (01) | DRG 775 ==
LOC: ER 06:56 → 5EST 10:10 → ENRESERV 15:44 → CANRESERV 15:44 → EDBEDREQSVC 16:34 → ENRESERV 17:15
PROVIDERS: ADMIT Internal Medicine; ATTEND Internal Medicine
DX: F10.129 Alcohol abuse with intoxication, unspecified (principal); J96.00 Acute respiratory failure, unspecified whether with hypoxia or hypercapnia; N17.0 Acute kidney failure with tubular necrosis; R57.9 Shock, unspecified; J69.0 Pneumonitis due to inhalation of food and vomit; G93.41 Metabolic encephalopathy; E11.10 Type 2 diabetes mellitus with ketoacidosis without coma; E87.5 Hyperkalemia; D72.829 Elevated white blood cell count, unspecified; E83.51 Hypocalcemia; H54.61 Unqualified visual loss, right eye, normal vision left eye; E11.65 Type 2 diabetes mellitus with hyperglycemia; Z79.4 Long term (current) use of insulin; Z97.0 Presence of artificial eye
CPT/HCPCS: 36415; 36600; 71045; 80048; 80305; 80307; 80320; 80329; 82010; 82375; 82693; 82805; 82962; 83735; 85025; 93005; 94640; 99291; J0456; J0610; J0696; J1160; J1815; J2060; J2270; J2405; J2765; J3480; J3490; J7030; J7060; J7070; G0480

== ENCOUNTER 2022-04-18 07:24 | Inpatient (IN) | payer MEDICAID ==
[2022-04-18] VITALS (16 sets, daily range): BP systolic 99–137; BP diastolic 51–86
[~2022-04-18] VITALS: Ht 154.9 cm; Wt 51.3 kg
[2022-04-18] MEDS ORDERED: SODIUM CHLORIDE 0.9% 1,000 ML IV ONE (07:30)
[2022-04-18] MEDS ORDERED: ONDANSETRON HCL 4MG/2ML INJ IV ONE (07:30)
[2022-04-18 08:24] LABS: BASOPHILS % 0.7 % (0.0-2.0); EOSINOPHILS % 0.2 % (0.0-5.0); HEMATOCRIT. 44.4 % (36.0-48.0); HEMOGLOBIN. 14.1 g/dL (12.0-16.0); LYMPHOCYTES % 25.7 % (20.0-50.0); MEAN CORPUSCULAR VOLUME 107.1 fL (81.0-99.0); MEAN PLATELET VOLUME 9.5 fl (7.4-10.4); MONOCYTES % 13.3 % (2.0-8.0); NEUTROPHILS % 60.1 % (40.0-76.0); PLATELET 251 x1000/uL (130-400); RED BLOOD CELL COUNT 4.15 mill/uL (4.2-5.4); RED CELL DISTRIBUTION WIDTH 13.8 % (11.6-14.6)
[2022-04-18 08:31] LABS: CHLORIDE 93 mEq/L (98-107)
[2022-04-18 08:32] LABS: D-DIMER 0.86 mg/L FEU (<0.50); INR 1.1; PROTHROMBIN TIME 11.6 sec (9.6-11.0)
[2022-04-18 08:37] LABS: ETHANOL BLOOD < 10 mg/dL
[2022-04-18] MEDS ORDERED: SODIUM CHLORIDE 0.9% 1000ML BAG (SEPSIS BOLUS) IV ONE ×2 (09:00→10:00)
[2022-04-18] MEDS ORDERED: INSULIN REGULAR (DRIP) 100 UNITS in SODIUM CHLORIDE 0.9% 99 ML IV ONE (09:00)
[2022-04-18 09:24] LABS: BG BASE EXCESS -29.2 mmol/L (-2.0-2.0); BG CARBOXYHEMOGLOBIN 0.6 % (0.5-1.5); BG FRACTION INSPIRED OXYGEN 21; BG HCO3 ACT 2.1 mmol/L (22.0-26.0); BG METHEMOGLOBIN 0.5 % (0.0-1.5); BG OXYHEMOGLOBIN 96.9 % (94.0-97.0); BG PCO2 10.8 mmHg (35.0-45.0); BG PH 6.905 (7.350-7.450); BG PO2 166.8 mmHg (75.0-100.0); BG SAMPLE SITE RIGHT RADIAL; BG TOTAL HEMOGLOBIN 13.1 g/dL (12.0-18.0); BG VENT MODE ROOM AIR
[2022-04-18 09:43] LABS: HCG SCREEN NEGATIVE
[2022-04-18] MEDS ORDERED: INSULIN REGULAR 100U/100ML PMX 100 ML IV PRN ×3 (09:45→21:00)
[2022-04-18] MEDS ORDERED: KETOROLAC 15MG/ML VIAL IV PRN (10:00)
[2022-04-18] MEDS ORDERED: DEXTROSE 50% WATER 50ML SYRINGE IV PRN ×2 (10:00)
[2022-04-18] MEDS ORDERED: ONDANSETRON HCL 4MG/2ML INJ IV PRN (10:00)
[2022-04-18] MEDS ORDERED: DOCUSATE SODIUM 100MG CAPSULE PO PRN (10:00)
[2022-04-18] MEDS ORDERED: ZOLPIDEM TARTRATE 5MG TABLET PO PRN (10:00)
[2022-04-18] MEDS ORDERED: NITROGLYCERIN 0.4MG TABLET SL SL PRN (10:00)
[2022-04-18] MEDS ORDERED: ACETAMINOPHEN 325MG TABLET PO PRN ×2 (10:00)
[2022-04-18] MEDS ORDERED: IPRATROPIUM/ALBUTEROL 0.5-3(2.5)MG/3ML NEB NEB PRN (10:00)
[2022-04-18] MEDS ORDERED: MAGNESIUM/ALUMINUM HYDROXIDE/SIMETHICONE 30ML UDC PO PRN (10:00)
[2022-04-18] MEDS ORDERED: GUAIFENESIN 200MG/10ML SUGAR FREE UDC PO PRN (10:00)
[2022-04-18] MEDS ORDERED: CLONIDINE 0.1MG TABLET PO PRN (10:00)
[2022-04-18 10:20] LABS: CLARITY URINE CLEAR (CLEAR); COLOR URINE YELLOW (YELLOW); KETONES URINE 4+ (NEGATIVE); LEUKOCYTE ESTERASE URINE NEGATIVE (NEGATIVE); NITRITE URINE NEGATIVE (NEGATIVE); OCCULT BLOOD URINE 1+ (NEGATIVE); PROTEIN URINE 1+ (NEGATIVE); SPECIFIC GRAVITY URINE 1.023 (1.005-1.030); UROBILINOGEN URINE 0.2 E.U./dL (0.2-1.0)
[2022-04-18] MEDS: SODIUM CHLORIDE 0.9% 1,000 ML IV SCH ×2 (10:27→16:37)
[2022-04-18] MEDS: BLOOD SUGAR DIAGNOSTIC STRIP TEST SCH ×12 (10:27→23:00)
[2022-04-18 10:29] LABS: *AMPHETAMINES SCREEN URINE NEGATIVE (NEGATIVE); *BARBITURATES SCREEN URINE NEGATIVE (NEGATIVE); *COCAINE SCREEN URINE NEGATIVE (NEGATIVE); CANNABINOID URINE SCREEN NEGATIVE (NEGATIVE); METHADONE URINE SCREEN NEGATIVE (NEGATIVE); OPIATES URINE SCREEN NEGATIVE (NEGATIVE); PHENCYCLIDINE URINE SCREEN NEGATIVE (NEGATIVE)
[2022-04-18 10:45] LABS: *BENZODIAZEPINES SCREEN URINE PRESUMTIVE POSITIVE (NEGATIVE)
[2022-04-18] MEDS: ENOXAPARIN 40MG/0.4ML SYR SUBCUT SCH (11:00)
[2022-04-18 11:04] LABS: T4 FREE 0.75 ng/dL (0.76-1.46)
[2022-04-18 11:19] LABS: VITAMIN B12 SERUM 1264 pg/mL (211-911)
[2022-04-18 11:22] LABS: FOLIC ACID (FOLATE) SERUM > 20.00 ng/mL (>5.38)
[2022-04-18 15:19] LABS: CHLORIDE 111 mEq/L (98-107)
[2022-04-18] MEDS: LEVOTHYROXINE SODIUM 25MCG TABLET PO SCH (15:25)
[2022-04-18 15:27] LABS: PHOSPHORUS 2.8 mg/dL (2.5-4.9)
[2022-04-18] MEDS ORDERED: MAGNESIUM 2 G PREMIX 50 ML IV NR (20:00)
[2022-04-18] MEDS ORDERED: ALPRAZOLAM 0.25 MG TABLET PO PRN (21:00)
[2022-04-18] MEDS: POTASSIUM CHLORIDE INJ 30 MEQ in DEXT 5%/0.9% NACL 1,000 ML IV SCH (21:48)
[2022-04-18 23:48] LABS: CHLORIDE 116 mEq/L (98-107)
[2022-04-19] VITALS (47 sets, daily range): BP systolic 91–127; BP diastolic 48–93
[2022-04-19] MEDS: BLOOD SUGAR DIAGNOSTIC STRIP TEST SCH ×11 (00:35→21:11)
[2022-04-19] MEDS: POTASSIUM CHLORIDE INJ 30 MEQ in DEXT 5%/0.9% NACL 1,000 ML IV SCH (04:24)
[2022-04-19 06:04] LABS: HEMATOCRIT. 30.7 % (36.0-48.0); HEMOGLOBIN. 10.6 g/dL (12.0-16.0); MEAN CORPUSCULAR HEMOGLOBIN 34.4 pg (28.0-32.0); MEAN PLATELET VOLUME 8.5 fl (7.4-10.4); PLATELET 183 x1000/uL (130-400); RED BLOOD CELL COUNT 3.07 mill/uL (4.2-5.4); RED CELL DISTRIBUTION WIDTH 13.5 % (11.6-14.6)
[2022-04-19 07:10] LABS: CHLORIDE 117 mEq/L (98-107)
[2022-04-19 07:28] LABS: PHOSPHORUS 1.3 mg/dL (2.5-4.9)
[2022-04-19] MEDS ORDERED: MIDAZOLAM 100MG/100ML PMX 100 ML IV PRN (08:30)
[2022-04-19] MEDS ORDERED: FENTANYL 2500MCG/250ML PMX 250 ML IV PRN (08:30)
[2022-04-19] MEDS: LEVOTHYROXINE SODIUM 25MCG TABLET PO SCH (08:31)
[2022-04-19] MEDS: PANTOPRAZOLE SODIUM 40 MG/VIAL IV SCH (08:31)
[2022-04-19] MEDS ORDERED: DEXTROSE 50% WATER 50ML SYRINGE IV PRN (10:00)
[2022-04-19] MEDS: ENOXAPARIN 40MG/0.4ML SYR SUBCUT SCH ×2 (10:59→11:00)
[2022-04-19] MEDS ORDERED: POTASSIUM PHOS,M-BASIC-D-BASIC 30 MMOL in DEXT 5% WATER 500 ML IV NR (11:00)
[2022-04-19] MEDS: INSULIN GLARGINE 100 UNITS/ML SUBCUT SCH (11:02)
[2022-04-19 12:34] LABS: PLATELET ESTIMATE NORMAL
[2022-04-19] MEDS: INSULIN LISPRO 100 UNITS/ML SUBCUT SCH ×5 (12:50→21:13)
[2022-04-20] VITALS (22 sets, daily range): BP systolic 97–114; BP diastolic 51–80
[2022-04-20 05:34] LABS: HEMATOCRIT. 33.2 % (36.0-48.0); HEMOGLOBIN. 11.6 g/dL (12.0-16.0); MEAN CORPUSCULAR HEMOGLOBIN 34.6 pg (28.0-32.0); MEAN CORPUSCULAR VOLUME 99.5 fL (81.0-99.0); MEAN PLATELET VOLUME 8.8 fl (7.4-10.4); PLATELET 194 x1000/uL (130-400); RED BLOOD CELL COUNT 3.34 mill/uL (4.2-5.4); RED CELL DISTRIBUTION WIDTH 13.7 % (11.6-14.6)
[2022-04-20 05:38] LABS: CHLORIDE 108 mEq/L (98-107)
[2022-04-20 05:49] LABS: PHOSPHORUS 1.7 mg/dL (2.5-4.9)
[2022-04-20] MEDS: INSULIN LISPRO 100 UNITS/ML SUBCUT SCH ×2 (07:50→08:09)
[2022-04-20] MEDS: BLOOD SUGAR DIAGNOSTIC STRIP TEST SCH (08:09)
[2022-04-20] MEDS: LEVOTHYROXINE SODIUM 25MCG TABLET PO SCH (08:10)
[2022-04-20] MEDS: PANTOPRAZOLE SODIUM 40 MG/VIAL IV SCH (09:00)
[2022-04-20 09:29] LABS: PLATELET ESTIMATE NORMAL
[2022-04-20] MEDS: INSULIN GLARGINE 100 UNITS/ML SUBCUT SCH (10:00)
== END 2022-04-20 10:40 | disposition left against medical advice (07) | DRG 420 ==
LOC: ER 07:24 → MICUSO 09:54 → EDBEDREQ 10:03 → EDBEDREQTM 10:03 → CVICU 15:37
PROVIDERS: ADMIT Internal Medicine; ATTEND Internal Medicine
DX: E11.10 Type 2 diabetes mellitus with ketoacidosis without coma (principal); E88.09 Other disorders of plasma-protein metabolism, not elsewhere classified; F10.10 Alcohol abuse, uncomplicated; E03.9 Hypothyroidism, unspecified; R74.01 Elevation of levels of liver transaminase levels; Z91.14 Patient's other noncompliance with medication regimen; Z53.29 Procedure and treatment not carried out because of patient's decision for other reasons; Z79.4 Long term (current) use of insulin; Z91.119 Patient's noncompliance with dietary regimen due to unspecified reason
CPT/HCPCS: 36415; 36600; 71045; 80048; 80053; 80061; 80305; 80320; 81003; 82375; 82607; 82746; 82805; 82962; 83036; 83540; 83550; 83735; 84100; 84439; 84443; 84703; 85025; 85379; 93306; 93970; 99291; C9113; J1650; J1815; J1885; J2405; J3475; J3480; J3490; J7030; J7042; J7050; J7060; G0480